=== PATIENT | male | born 1955 | race Asian ===

== ENCOUNTER 2020-08-30 11:43 | Inpatient (IN) | payer OTHER ==
[~2020-08-30] VITALS: Ht 177.8 cm; Wt 77.7 kg
--- NOTE | ~2020-08-30 | EEG ---
[facility] [place] [address] ELECTROENCEPHALOGRAM Name: RAIMUNDO CERVANTES Room #: 201-P [facility] IN M.R.#: [id number] Admission: 08/30/20 Attend Phys: Fani Askew MD Discharge: 08/31/20 Date of : 57 Report #: [id number] THIS REPORT FOR: //name// DOC #: [id number] Ever Garcia MD DATE OF SERVICE: 08/31/2020 This patient is being evaluated for an episode which is TIA versus nonconvulsive seizure. EEG was done by placing the electrode by standard 10-20 system of electrode placement. Both referential and sequential montages were used for recording. Background activity in this patient's EEG is about 9 Hz and 30 microvolts. Large portion of this EEG was obtained when the patient was asleep and associated with bilateral slowing and vertex sharp waves. Photic stimulation is unremarkable. Throughout the record, no active epileptiform activity was noticed. IMPRESSION: Moderately abnormal EEG because it is intermixed with theta range slowing on both sides. That is a nonspecific finding which can occur with encephalopathy, effect of psychotropic medication, dementia, etc. No definite evidence for seizure activity was noticed. Thank you very much for this referral. Ever Garcia MD PK/SMITH By: 1327 1429 Ever Garcia MD /rolf
--- NOTE | ~2020-08-30 | HC ---
[facility] [place] [address] CONSULTATION Name: RAIMUNDO CERVANTES Room #: 201-P DIS IN M.R.#: [id number] Admission: 08/30/20 Attend Phys: Fani Askew MD Discharge: 08/31/20 Date of : 57 Report #: [id number] THIS REPORT FOR: cc: FAM - Family physician unknown FAM - Family physician unknown Ever Garcia MD ~ DOC #: [id number] Ever Garcia MD DATE OF SERVICE: 08/31/2020 HISTORY OF PRESENT ILLNESS: This is a 65-year-old male patient who was evaluated by me for an episode which this patient had, episode is poorly defined. The patient has baseline history that he has a progressive dementia. 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 The patient has disorientation and confusion since and is summarized in H and P and he was repeating the same sentences again and again. He was brought to the emergency room and in the emergency room, the patient had a CT angiogram done, which did not demonstrate any evidence for any hemodynamically significant stenosis. He had an MRI done which was also unremarkable. REVIEW OF SYSTEMS: Positive for progressive dementia and the episode he had, except for that, he apparently does not have any significant medical problems. A 14-point review of system was noncontributory. PAST MEDICAL HISTORY: Positive for progressive dementia, for which he was evaluated in [place] and evaluation was consistent with dementia. FAMILY HISTORY: Appears to be positive for dementia in this patient. SOCIAL HISTORY: He does not smoke or drink any alcohol. PHYSICAL EXAMINATION: The patient's examination indicate he is alert. He can tell me what month it is, but could not tell me the date. He did not know what hospital he is in. He was able to name the president, but could not name the one before, but after several minutes, he did remember. Cranial nerve examination and neuromuscular examinations appear unremarkable. There is no meningeal sign. I could not look at the patient's fundus. He does not appear to have any edema. He is a very well-developed individual who does not have any hearing and vision problems. Cardiac examination appear unremarkable. No respiratory difficulty was noticed. LABORATORY DATA: His vitamin B12 is somewhat on the lower side at 247. TSH is borderline at 4.775. T4 is normal. IMPRESSION AND PLAN: Baseline dementia. I do not know whether the present [facility] [address] [place] [address] CONSULTATION Name: RAIMUNDO CERVANTES Room #: 201-P DIS IN M.R.#: [id number] Admission: 08/30/20 Attend Phys: Fani Askew MD Discharge: 08/31/20 Date of : 57 Report #: [id number] episode was nonconvulsive seizures or transient ischemic attack. Workup so far is unremarkable. I will get an EEG done. EEG is not sensitive enough to brain picker all the seizures. This patient had a full evaluation in [place] including neuropsychological testing and I do not think there is any need to repeat that. This patient needs 24-hour supervision. He should get some vitamin B12 supplement to get his level more than 400. I recommended that he take seizure precautions, but then follow up with [facility] memory clinic because of the complicated history regarding his dementia as described above. I discussed that with the . Until his EEG is abnormal, I will not put him on anticonvulsant, but if he goes to [facility], they can do more testing like prolonged EEG monitoring if the spells continue. If these spells continue, may have to consider a diagnosis of nonconvulsive seizure and treat accordingly. Thank you very much for this referral and if you have any questions, please feel free to contact me. MD TAIWO King/BEN/NOEL By: 0849 01 Ever Garcia MD /nt
--- NOTE | 2020-08-30 11:45 | NUR ---
DR LEES NOTIFIED OF THE ONSET OF PT'S SYMPTOMS, AND DID NOT WANT TO ACTIVATE A STROKE.
[2020-08-30 11:51] VITALS: BP 168/81
[2020-08-30 12:07] LABS: ABSOLUTE NEUTROPHILS 3.4 thou/uL (1.4-8.2); BASOPHILS 0.6 % (0.0-2.0); EOSINOPHILS 1.5 % (0.0-3.0); HEMATOCRIT 52.1 % (42.0-52.0); HEMOGLOBIN 17.4 gm/dL (14.0-18.0); LYMPHOCYTES 28.7 % (24.0-44.0); MCH 32.1 pg (26.0-34.0); MCHC 33.4 g/dL (28.0-37.0); MCV 96.1 fL (80.0-100.0); MONOCYTES 12.4 % (1.0-8.0); PLATELET COUNT 278 thou/uL (150-400); POLYS 56.8 % (36.0-66.0); RBC 5.42 mil/uL (4.50-6.00); RDW 12.4 % (10.5-14.5); WBC 5.9 thou/uL (4.0-11.0)
[2020-08-30 12:16] LABS: ANION GAP 9 mmol/L (7-16); BUN 9 mg/dL (7-18); CALCIUM 8.3 mg/dL (8.5-10.1); CHLORIDE 103 mmol/L (98-107); CO2 29 mmol/L (21-32); CREATININE 1.3 mg/dL (0.7-1.3); GLUCOSE 92 mg/dL (74-106); POTASSIUM 3.7 mmol/L (3.5-5.1); SODIUM 141 mmol/L (136-145)
[2020-08-30 12:21] LABS: BE(vivo) 0.8 mmol/L (-2 to +3); HCO3 27.5 mmol/L (22.0-26.0); PCO2 VENOUS 50.9 mmHg (41.0-51.0); PO2 VENOUS 30.5 mmHg (35.0-45.0)
[2020-08-30 12:26] LABS: ALBUMIN 3.8 g/dL (3.4-5.0); MAGNESIUM 2.4 mg/dL (1.8-2.4); SGOT 22 U/L (15-37); SGPT 31 U/L (30-65); TOTAL BILIRUBIN 0.7 mg/dL (0.2-1.0); TOTAL PROTEIN 7.6 g/dL (6.4-8.2); TROPONIN-I <0.06 ng/mL (<0.06)
[2020-08-30 13:24] LABS: URINE BILIRUBIN NEGATIVE (Negative); URINE BLOOD NEGATIVE (Negative); URINE CLARITY CLEAR; URINE COLOR YELLOW; URINE GLUCOSE-RANDOM* NEGATIVE (Negative); URINE KETONES NEGATIVE (Negative); URINE LEUKOCYTES-REFLEX NEGATIVE (Negative); URINE NITRITE-REFLEX NEGATIVE (Negative); URINE PROTEIN (DIPSTICK) NEGATIVE (Negative); URINE UROBILINOGEN 0.2 E.U./dl (0.2-1.0)
[2020-08-30] MEDS ORDERED: OMEPRAZOLE 20 M20 M1 PO (13:42)
[2020-08-30] MEDS ORDERED: DICYCLOMINE HCL20 MG PO (13:43)
[2020-08-30] MEDS ORDERED: LORAZEPAM 1 MG T1 MG PO (13:44)
[2020-08-30] MEDS ORDERED: DOXEPIN 50MG CA50 M1 PO (13:44)
[2020-08-30] MEDS ORDERED: MEMANTINE HCL10 MG PO (13:45)
[2020-08-30 14:17] VITALS: BP 147/96
[2020-08-30 14:32] VITALS: BP 150/83
--- NOTE | 2020-08-30 14:44 | EKG ---
[address] [address] ELECTROCARDIOGRAM REPORT Name: RAIMUNDO CERVANTES Room #: 201-P ADM IN M.R.#: [id number] Admission: 08/30/20 Attend Phys: Fani Askew MD Discharge: Date of : 57 Report #: [id number] [facility] ED Test Date: 2020-08-30 Test Time: 12:05:46 Pat Name: RAIMUNDO CERVANTES Department: Room: 201 Gender: M Clinical Services Director: ANDREY : 1955 Requested By: Gagan Aguilar Order Number: [id number] : Victoriano Banks Measurements Intervals [place] Rate: 78 P: 45 [place]: 180 QRS: 6 QRSD: 86 T: 26 QT: 363 QTc: 414 Interpretive Statements Sinus rhythm No previous ECG available for comparison Electronically Signed On 08-30-2020 14:43:58 CDT by Victoriano Banks [email or web address] <ELECTRONICALLY SIGNED> By: Victoriano Banks MD, [facility] 08/30/20 1443 1205 1205 Victoriano Banks MD, FACC /EPI
[2020-08-30 14:57] VITALS: BP 158/103
[2020-08-30] MEDS ORDERED: TRAMADOL 50 MG50 MG PO (15:24)
[2020-08-30] MEDS ORDERED: ASA81BEC PO (15:24)
--- NOTE | 2020-08-30 16:30 | NUR ---
PATIENT ADMIT TO CCU AT 1455. AT BEDSIDE. PATIENT HAS INTERMITTENT CONFUSION. STATES HIS NAME AND KNOWS HE IS IN A HOSPITAL, BELIEVES HE IS AT HOSPITAL IN [place]. WILL ANSWER SEVERAL QUESTIONS APPRORIATELY THEN TELL HIS WE ARE TRICKING HIM IN TO STAYING AT THE HOSPITAL. EKG AND CAROTID ULTRASOUND COMPLETED. VERY MINIMAL LEFT SIDE FACIAL DROOP NOTED WHEN PATIENT SMILES. PROVIDER AWARE, THIS WAS PRESENT IN ED. 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
[2020-08-30 18:31] LABS: FOLIC ACID 10.4 ng/mL (8.6-58.9)
[2020-08-30 19:05] VITALS: BP 131/92
[2020-08-31 04:00] VITALS: BP 135/99
--- NOTE | 2020-08-31 06:36 | NUR ---
PATIENTS CARES WERE ASSUMED AT SHIFT CHANGE.PATIENT WAS ASSESSED AND MEDS WERE PASSED. PATIENT DID SLEEP MOST OF THIS SHIFT AFTER SLEEP MEDS WERE GIVEN. ROUNDS WERE MADE. THE BED IS IN A LOW AND LOCKED POSITION. THE BED ALARM IS ON. CONSULTS WERE CALLED
--- NOTE | 2020-08-31 07:46 | EKG ---
[address] [address] ELECTROCARDIOGRAM REPORT Name: RAIMUNDO CERVANTES Room #: 201-P ADM IN M.R.#: [id number] Admission: 08/30/20 Attend Phys: Fani Askew MD Discharge: Date of : 57 Report #: [id number] [facility] Test Date: 2020-08-30 Test Time: 16:12:46 Pat Name: RAIMUNDO CERVANTES Department: Room: 201 P Gender: M Ict Educator: EMORY : 1955 Requested By: Fani Askew Order Number: [id number] MD: Victoriano Banks Measurements Intervals [place] Rate: 77 P: 37 CT: 185 QRS: 8 QRSD: 92 T: 25 QT: 377 QTc: 427 Interpretive Statements Sinus rhythm Compared to ECG 08/30/2020 12:05:46 No significant changes Electronically Signed On 08-31-2020 7:46:06 CDT by Victoriano Banks [email or web address] <ELECTRONICALLY SIGNED> By: Victoriano Banks MD, [facility] 08/31/20 0746 1612 1612 Victoriano Banks MD, FACC /EPI
[2020-08-31 08:40] VITALS: BP 123/80
--- NOTE | 2020-08-31 11:19 | 2DMMODE ---
[facility] [place] [address] 2 D/M-MODE ECHOCARDIOGRAM Name: RAIMUNDO CERVANTES Room #: 201-P ADM IN M.R.#: [id number] Admission: 08/30/20 Attend Phys: Fani Askew MD Discharge: Date of : 57 Report #: [id number] THIS REPORT FOR: cc: FAM - Family physician unknown FAM - Family physician unknown Matthew Sutton MD ~ APPROVED REPORT Study performed: 08/31/2020 09:22:26 EXAM: Comprehensive 2D, Doppler, and color-flow Echocardiogram Patient Location: Bedside Room #: 201 Status: routine BSA: 1.95 HR: 93 bpm BP: 135/99 mmHg Rhythm: NSR Other Information Study Quality: Adequate Indications CVA/TIA Hypertension/HDD Echo Enhancing Agent Indication: Rule out Shunt Agent(s) / Amount(s) Used: Agitated Saline 7 cc Aortic Valve AoV Peak Aristeo.: 0.89 m/s AO Peak Gr.: 3.15 mmHg LVOT Max P.48 mmHg LVOT Max V: 0.93 m/s Left Ventricle The left ventricle is normal size. There is normal LV segmental wall motion. There is normal left ventricular wall thickness. The left ventricular systolic function is normal. The left ventricular ejection fraction is within the normal range. LVEF is 55-60%. This study is not technically sufficient to allow evaluation of the LV diastolic function. Right Ventricle [facility] [address] [place] [address] 2 D/M-MODE ECHOCARDIOGRAM Name: RAIMUNDO CERVANTES Room #: 201-P ADM IN M.R.#: [id number] Admission: 08/30/20 Attend Phys: Fani Askew, Discharge: Date of : 57 Report #: [id number] The right ventricle is normal size. The right ventricular systolic function is normal. Atria The left atrium size is normal. Interatrial septum is intact without evidence of ASD or PFO. The right atrium size is normal. Aortic Valve The aortic valve is normal in structure. The Aortic valve is sclerotic. Mild aortic regurgitation. There is no aortic valvular stenosis. Mitral Valve The mitral valve is normal in structure. There is no mitral valve regurgitation noted. No evidence of mitral valve stenosis. Tricuspid Valve The tricuspid valve is normal in structure. There is no tricuspid valve regurgitation noted. Pulmonic Valve The pulmonary valve is normal in structure. There is no pulmonic valvular regurgitation. Great Vessels The aortic root is normal in size. IVC is normal in size and collapses >50% with inspiration. Pericardium There is no pericardial effusion. <Conclusion> The left ventricle is normal size. There is normal left ventricular wall thickness. LVEF is 55-60%. The aortic valve is normal in structure. The Aortic valve is sclerotic. Mild aortic regurgitation. The mitral valve is normal in structure. The tricuspid valve is normal in structure. The pulmonary valve is normal in structure. The aortic root is normal in size. [facility] [address] [place] [address] 2 D/M-MODE ECHOCARDIOGRAM Name: RAIMUNDO CERVANTES Room #: 201-P ADM IN M.R.#: [id number] Admission: 08/30/20 Attend Phys: Fani Askew, Discharge: Date of : 57 Report #: [id number] There is no pericardial effusion. Interatrial septum is intact without evidence of ASD or PFO. <ELECTRONICALLY SIGNED> By: Matthew Sutton MD 08/31/20 1118 1118 1118 Matthew Sutton MD /INF
--- NOTE | 2020-08-31 11:28 | NUR ---
P.T. ORDERS RECEIVED AND CHART REVIEWED. Pt BACK FROM MRI AND TEST RESULTS RE- VIEWED WITH HIS NURSE, STEVE, WITH NO ACUTE FINDINGS. STEVE STATES THAT Pt SHOULD BE D/C TODAY THEN. SPOKE TO Pt, HIS , AND NURSE, WHO ALL STATE THAT Pt IS GETTING AROUND WELL AND SAFETY AND NO NEED FOR SKILLED P.T. AT THIS TIME. Pt (AND HIS ) THUS REFUSING P.T.. O.T. DID EVAL Pt PRIOR TO THIS AND PER O.T. DOCUMENTATION AND Pt (AND HIS ), Pt IS SAFE WITH HIS MOBILITY.
[2020-08-31] MEDS ORDERED: PLAVIX 75 MG TA75 MG PO (12:32)
[2020-08-31] MEDS ORDERED: LIPITOR10 MG PO (12:32)
[2020-08-31 12:41] VITALS: BP 123/80
[2020-08-31 13:03] VITALS: BP 123/80
--- NOTE | 2020-08-31 13:04 | NUR ---
PT DC TODAY AT 1300 WITH . ECHO AND EEG DONE AT BEDSIDE. MRI OF HEAD COMPLETED. PT AFEBRILE, ADEQUATE UOP, NO BM, APPROPRIATE APPETITE. PT AND HAVE BEEN UPDATED AND EDUCATED ON PT CONDITION AND POC. PT PROGRESSING TOWARDS POC.
== END 2020-08-31 13:00 | disposition home or self-care (01) | DRG 69 ==
LOC: ER 11:43 → EROBS 14:34 → 2N 14:34
PROVIDERS: Emergency Medicine; ADMIT Internal Medicine; ATTEND Internal Medicine
DX: G45.9 Transient cerebral ischemic attack, unspecified (principal); G93.41 Metabolic encephalopathy; R29.810 Facial weakness; F03.90 Unspecified dementia, unspecified severity, without behavioral disturbance, psychotic disturbance, mood disturbance, and anxiety; F41.9 Anxiety disorder, unspecified; Z20.822 Contact with and (suspected) exposure to COVID-19; Z79.899 Other long term (current) drug therapy; Z87.820 Personal history of traumatic brain injury
CPT/HCPCS: 10081

== ENCOUNTER 2020-12-28 20:20 | Emergency (ER) | payer OTHER ==
[~2020-12-28] VITALS: Ht 177.8 cm; Wt 79.4 kg
[~2020-12-28 20:20] MED LIST: ASA81BEC PO; DICYCLOMINE HCL20 MG PO; DOXEPIN 50MG CA50 M1 PO; LIPITOR10 MG PO; LORAZEPAM 1 MG T1 MG PO; MEMANTINE HCL10 MG PO; OMEPRAZOLE 20 M20 M1 PO; PLAVIX 75 MG TA75 MG PO; TRAMADOL 50 MG50 MG PO
[2020-12-28] MEDS ORDERED: [UNRECOGNIZED DRUG - OTHER] PO (20:36)
[2020-12-28 21:10] LABS: ABSOLUTE NEUTROPHILS 2.5 thou/uL (1.4-8.2); BASOPHILS 0.6 % (0.0-2.0); EOSINOPHILS 0.1 % (0.0-3.0); HEMATOCRIT 45.6 % (42.0-52.0); HEMOGLOBIN 15.9 gm/dL (14.0-18.0); LYMPHOCYTES 18.7 % (24.0-44.0); MCH 32.1 pg (26.0-34.0); MCHC 34.9 g/dL (28.0-37.0); MCV 91.9 fL (80.0-100.0); MONOCYTES 16.6 % (1.0-8.0); PLATELET COUNT 163 thou/uL (150-400); RBC 4.96 mil/uL (4.50-6.00); RDW 12.4 % (10.5-14.5)
[2020-12-28 21:19] LABS: CALCIUM 7.9 mg/dL (8.5-10.1); CREATININE 1.3 mg/dL (0.7-1.3); POTASSIUM 3.4 mmol/L (3.5-5.1)
[2020-12-28 21:25] LABS: ALBUMIN 3.2 g/dL (3.4-5.0); DIRECT BILIRUBIN 0.2 mg/dL (<0.1-0.2); TOTAL BILIRUBIN 0.6 mg/dL (0.2-1.0); TOTAL PROTEIN 7.1 g/dL (6.4-8.2)
[2020-12-29 08:34] LABS: URINE BILIRUBIN NEGATIVE (Negative); URINE BLOOD NEGATIVE (Negative); URINE CLARITY CLEAR; URINE COLOR YELLOW; URINE GLUCOSE-RANDOM* NEGATIVE (Negative); URINE KETONES TRACE (Negative); URINE LEUKOCYTES-REFLEX NEGATIVE (Negative); URINE NITRITE-REFLEX NEGATIVE (Negative); URINE PROTEIN (DIPSTICK) NEGATIVE (Negative); URINE UROBILINOGEN 0.2 E.U./dl (0.2-1.0)
[2020-12-29 08:43] LABS: AMP/METHAMP Negative (Negative); BARBITURATES Negative (Negative); BENZODIAZEPINES Negative (Negative); COCAINE Negative (Negative); METHADONE Negative (Negative); OPIATES Negative (Negative); PCP Negative (Negative)
[2020-12-29 09:33] VITALS: BP 142/84
--- NOTE | 2020-12-30 08:18 | EKG ---
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
--- NOTE | 2020-12-30 08:21 | EKG ---
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
== END 2020-12-29 09:34 | disposition still patient (30) ==
LOC: ER 20:20
PROVIDERS: Student in an Organized Health Care Education/Training Program
DX: U07.1 COVID-19 (principal); F03.90 Unspecified dementia, unspecified severity, without behavioral disturbance, psychotic disturbance, mood disturbance, and anxiety; Z79.82 Long term (current) use of aspirin; Z79.1 Long term (current) use of non-steroidal anti-inflammatories (NSAID); Z79.899 Other long term (current) drug therapy

== ENCOUNTER 2020-12-29 11:16 | Inpatient (IN) | payer OTHER ==
[~2020-12-29] VITALS: Ht 175.3 cm; Wt 74.4 kg
--- NOTE | ~2020-12-29 | EMS ---
[facility] [address] [place] [address] EMS Patient Care Report Name: RAIMUNDO CERVANTES Room #: 351-P ADM IN M.R.#: [id number] Admission: 12/29/20 Attend Phys: Kirti Gomez MD Discharge: Date of : 57 Report #: [id number] THIS REPORT FOR: //name// Report Transmitted: 12/30/2020 12:27 EMS Care Summary [facility] Incident [id number] @ 12/29/2020 10:23 Incident Location [address] [place] [id number] Patient RAIMUNDO CERVANTES Male, 65 Years 1955 Patient Address [address] [place] [phone] Patient History Other, Patient Allergies No known allergies, Patient Medications Lorazepam, Doxepin, Omeprazole, Tramadol, Chief Complaint GENERAL SICKNESS/COVID-19 POSITIVE Disposition Transported No Lights/[place] Dispatch Reason Sick Person Transported To [facility] Narrative MEDIC 43 DISPATCHED TO A 65 YO MALE WITH FATIGUE/NOT FEELING WELL. ON SCENE CAPTAIN REPORTED PT IS COVID-19 POSITIVE ALONG WITH EVERY OTHER MEMBER IN HOUSEHOLD. IT WAS REPORTED CALLED 911 DUE TO HUSBANDS INTERMITTENT CONFUSION ALONG WITH HIS FATIGUE. ON SCENE CAPTAIN REPORTED THAT PT ALSO HAS A [facility] [address] [place] [address] EMS Patient Care Report Name: RAIMUNDO CERVANTES Room #: 351-P ADM IN .R.#: [id number] Admission: 12/29/20 Attend Phys: Kirti Gomez MD Discharge: Date of : 57 Report #: [id number] MEDICAL HX OF TBI DUE TO PLAYING FOOTBALL YEARS PRIOR. PT HAD REPORTEDLY BEEN TO [facility] THE NIGHT PRIOR FOR A FECAL IMPACTION. [facility] CREW ASSISTED PT TO COT AND LOADED PT INTO AMBULANCE. MY INITIAL ASSESSMENT FOUND PT AOX4, WITH GCS OF 15. PT WOULD RAMBLE SOME SMALL CONFUSING STATEMENTS ON HIS OWN, BUT WHEN ASKED IF IT IS DAYTIME OR NIGHT TIME/HOW MANY QUARTERS ARE IN A $1.50; PT COULD ANSWER CORRECTLY. VS WNL. AIRWAY INTACT WITH CEBLS. AXILLARY TEMP 99.7. CSS NEGATIVE. PT HAD NO IMMEDIATE CHIEF COMPLAINT, PT STATED HE JUST DIDN'T FEEL WELL. PT ANSWERED HE WAS COVID POSITIVE, AND HAD BEEN ILL FOR ABOUT SIX DAYS. SECONDARY ASSESSMENT FOUND PT AOX4, GCS 15, VS WNL, AIRWAY INTACT WITH CEBLS. CSS NEGATIVE. PT HAD NO NEW C/C OR CHANGES IN CONDITION. [facility] WAS GIVEN RADIO REPORT. UPON ARRIVAL PT WAS TAKEN TO ER ROOM 3, BEDSIDE REPORT GIVEN TO RN. PT FULL LIFT TO BED. MEDIC 43 CLEAR AND RETURNING. Initial Vitals @11:05P: 93,R: 26,BP: 113/76,Pain: 0/10,GCS: 15,CO: 0,SpO2: 96,Revised Trauma: 12, @10:52P: 96,R: 21,BP: 105/61,Pain: 0/10,GCS: 15,SpO2: 98,Revised Trauma: 12, @10:37P: 105,R: 15,BP: 114/81,Pain: 0/10,GCS: 15,Glucose: 93,SpO2: 98,Revised Trauma: 12, @11:08P: 94,R: 23,BP: 132/88,Pain: 0/10,GCS: 15,CO: 0,SpO2: 95,Revised Trauma: 12, Assessments @10:38MENTAL:No Abnormalities,SKIN:No Abnormalities,HEENT:Eyes: Right Pupil: 3-mm,Eyes: Left Pupil: 3-mm,Head/Face: No Abnormalities,LUNG SOUNDS:General: No Abnormalities,ABDOMEN:General: No Abnormalities,PELVIS//GI:EXTREMITIES:Capillary Refill: Left Upper: 3 Sec,Left Arm: No Abnormalities,Right Arm: No Abnormalities,Left Leg: No Abnormalities,Right Leg: No Abnormalities,PULSE:Radial: 2+ Normal,NEURO:No Abnormalities,@10:48MENTAL:No Abnormalities,SKIN:No Abnormalities,HEENT:Eyes: Right Pupil: 3-mm,Eyes: Left Pupil: 3-mm,Head/Face: No Abnormalities,Neck/Airway: No Abnormalities,LUNG SOUNDS:General: No Abnormalities,ABDOMEN:General: No Abnormalities,PELVIS//GI:EXTREMITIES:Capillary Refill: Left Upper: 3 Sec,Left Arm: No Abnormalities,Right Arm: No Abnormalities,Left Leg: No Abnormalities,Right Leg: No Abnormalities,PULSE:Radial: 2+ Normal,NEURO:No Abnormalities, Impression Fatigue Procedures @10:38ALS AssessmentResponse: UnchangedSucceeded@10:41Normal Saline (.9% NaCl) 510cc (18 ga) Site: Antecubital-LeftResponse: UnchangedSucceeded@10:48ALS [facility] [address] [place] [address] EMS Patient Care Report Name: RAIMUNDO CERVANTES Room #: 351-P ADM IN M.R.#: [id number] Admission: 12/29/20 Attend Phys: Kirti Gomez MD Discharge: Date of : 57 Report #: [id number] AssessmentResponse: UnchangedSucceeded@10:42 cc (18 ga) Site: Antecubital-LeftResponse: UnchangedSucceeded Timeline 10:22,Call Received 10:22,Psap Call 10:23,Dispatched 10:24,En Route 10:31,On Scene 10:37,At Patient 10:37,BP: 114/81 M,PULSE: 105,RR: 15 R,SPO2: 98 Ox,ETCO2: ,B,PAIN: 0,GCS: 15, 10:38,ALS Assessment,Response: UnchangedSucceeded, 10:41,Normal Saline (.9% NaCl) 510cc 18 ga Site: Antecubital-Left,Response: UnchangedSucceeded, 10:42, cc 18 ga Site: Antecubital-Left,Response: UnchangedSucceeded, 10:43,Depart Scene 10:48,ALS Assessment,Response: UnchangedSucceeded, 10:52,BP: 105/61 M,PULSE: 96,RR: 21 R,SPO2: 98 Ox,ETCO2: ,BG: ,PAIN: 0,GCS: 15, 11:05,BP: 113/76 M,PULSE: 93,RR: 26 R,SPO2: 96 Ox,ETCO2: ,BG: ,PAIN: 0,GCS: 15, 11:08,BP: 132/88 M,PULSE: 94,RR: 23 R,SPO2: 95 Ox,ETCO2: ,BG: ,PAIN: 0,GCS: 15, 11:09,At Destination 11:34,Call Closed Disclaimer v1.1 Copyright 2020 [employer] This EMS Care Summary contains data elements from the applicable legal record (which may be displayed differently). It is designed to provide pertinent information for the following purposes: continuity of care, clinical quality, and state data reporting. The complete legal record is available to ED staff and administrators of the receiving hospital in ES's Patient Tracker. All data is provided "as is."
[~2020-12-29 11:16] MED LIST changes: +[UNRECOGNIZED DRUG - OTHER] PO
[2020-12-29 11:17] VITALS: BP 152/88
[2020-12-29 12:23] VITALS: BP 152/88
[2020-12-29 12:30] VITALS: BP 158/80
[2020-12-29 14:40] VITALS: BP 146/74
[2020-12-29 18:12] LABS: HEMATOCRIT 48.7 % (42.0-52.0); HEMOGLOBIN 16.7 gm/dL (14.0-18.0); MCH 31.9 pg (26.0-34.0); MCHC 34.2 g/dL (28.0-37.0); MCV 93.2 fL (80.0-100.0); PLATELET COUNT 191 thou/uL (150-400); RBC 5.22 mil/uL (4.50-6.00); RDW 12.4 % (10.5-14.5); WBC 4.8 thou/uL (4.0-11.0)
[2020-12-29 18:44] LABS: ABSOLUTE NEUTROPHILS 3.6 thou/uL (1.4-8.2)
[2020-12-29 19:26] VITALS: BP 148/96
--- NOTE | 2020-12-29 19:46 | NUR ---
PATIENT ADMIT TO UNIT FROM ER AT 1230. A/O X3. CONFUSED AND IMPULSIVE FREQUENTLY GOT UP WANT DO SOMETHING. PATIENT ABLE TO TURN BED ALARM OFF THEN WENT TO SHOWER ROOM TURN HPT WATER ON. CHULA RESTRAIT PLACED AT 1635. NOTIFIED PATIENT . VSS. TOLERATED ON RA. WILL KEEP MONITOR.
[2020-12-30 03:23] LABS: ABSOLUTE NEUTROPHILS 3.6 thou/uL (1.4-8.2); BASOPHILS 0.2 % (0.0-2.0); HEMATOCRIT 46.5 % (42.0-52.0); LYMPHOCYTES 17.3 % (24.0-44.0); MCHC 34.5 g/dL (28.0-37.0); MCV 92.8 fL (80.0-100.0); MONOCYTES 15.9 % (1.0-8.0); PLATELET COUNT 186 thou/uL (150-400); POLYS 66.6 % (36.0-66.0); RBC 5.01 mil/uL (4.50-6.00); RDW 12.3 % (10.5-14.5); WBC 5.3 thou/uL (4.0-11.0)
[2020-12-30 03:41] LABS: CHOLESTEROL 115 mg/dL (<200); HDL CHOLESTEROL 32 mg/dL (>40); LDL CHOLESTEROL 70 mg/dL (<100); TC:HDL 3.6 Ratio (Not establshd); TRIGLYCERIDE 67 mg/dL (<150); VLDL 13 mg/dL (<40)
[2020-12-30 03:42] VITALS: BP 141/71
[2020-12-30 03:43] LABS: CALCIUM 7.3 mg/dL (8.5-10.1); CREATININE 1.3 mg/dL (0.7-1.3); MAGNESIUM 1.8 mg/dL (1.8-2.4); POTASSIUM 3.8 mmol/L (3.5-5.1)
--- NOTE | 2020-12-30 04:47 | NUR ---
PT MAKING PROGRESS TOWARDS GOALS. ON ROOM AIR THROUGHOUT THE NIGHT. CONTINUOS PULSE OXIMETER PLACED OVERNIGHT. O2 SAT 94-96% UPON SPOT CHECKS.
[2020-12-30 04:49] LABS: SERUM ASSESSMENT Clear
[2020-12-30 07:27] VITALS: BP 111/77
[2020-12-30 15:56] VITALS: BP 141/88
[2020-12-30 19:28] VITALS: BP 159/97
--- NOTE | 2020-12-30 19:58 | NUR ---
RESTRAINTS REMOVED AT 1200. PT REDIRECTED X2. BED ALARM IS A MUST. POC FOR COVID BEING FOLLOWED WITH REMDESIVIR AND IVPB. SPOKE TO PT X2. DR ROPER CALLED PT AND DISCCUSSED OPTIONS FOR DC. HENRI IN TO DD. NO OTHER ISSUES.
[2020-12-31 01:06] LABS: GLYCOHEMOGLOBIN (HGB A1C) 5.6 % (4.8-5.6)
[2020-12-31 04:18] VITALS: BP 110/92
[2020-12-31 04:45] LABS: INR 1.04; PROTIME 11.3 Seconds (10.5-12.1)
[2020-12-31 05:13] LABS: ABSOLUTE NEUTROPHILS 2.8 thou/uL (1.4-8.2); BASOPHILS 0.5 % (0.0-2.0); EOSINOPHILS 0.1 % (0.0-3.0); HEMATOCRIT 43.4 % (42.0-52.0); HEMOGLOBIN 14.9 gm/dL (14.0-18.0); LYMPHOCYTES 20.9 % (24.0-44.0); MCHC 34.2 g/dL (28.0-37.0); MCV 93.4 fL (80.0-100.0); MONOCYTES 18.9 % (1.0-8.0); PLATELET COUNT 193 thou/uL (150-400); POLYS 59.6 % (36.0-66.0); RBC 4.65 mil/uL (4.50-6.00); RDW 12.8 % (10.5-14.5); WBC 4.7 thou/uL (4.0-11.0)
[2020-12-31 05:44] LABS: ALBUMIN 2.5 g/dL (3.4-5.0); CALCIUM 7.2 mg/dL (8.5-10.1); CREATININE 1.2 mg/dL (0.7-1.3); DIRECT BILIRUBIN 0.1 mg/dL (<0.1-0.2); PHOSPHORUS 2.6 mg/dL (2.5-4.9); POTASSIUM 3.7 mmol/L (3.5-5.1); TOTAL BILIRUBIN 0.4 mg/dL (0.2-1.0); TOTAL PROTEIN 6.1 g/dL (6.4-8.2)
--- NOTE | 2020-12-31 05:49 | NUR ---
PT MAKING PROGRESS TOWARDS GOALS. ON ROOM AIR THROUGHOUT THE NIGHT. ONLY C/O WAS OCCASIONAL COUGHING. LUNGS CTA.
[2020-12-31 07:44] VITALS: BP 140/84
[2020-12-31 09:08] LABS: HIV ANTIBODY Non Reactive (Non Reactive)
--- NOTE | 2020-12-31 14:59 | NUR ---
INITIAL ASSESSMENT: Received consult. JONY reviewed chart and spoke with nursing and attending physician. Pt was admitted from home due to AMS. Neuro and psych consulted. Pt placed in Enhanced Isolation due to COVID. Pt has received the [employer] COVID vaccine. Pt is afebrile and not requiring O2. Pt is is on IV abx, IV steroids and Remdesivir. Pt with hx of dementia. PT/OT evaluated pt today and states pt is safe to discharge back home. JONY spoke with pt's , Graciela, via phone. Introduced role of SW. Prior to admission, pt needing some assistance with ADLs due to dementia. Pt does not use any DME. There are 2 steps to enter and about 10-12 steps inside. Pt's PCP is Dr. Roly Bains at [facility]. Pt's states that she is wanting to bring pt home when he is discharged. She does not want him to go to another facility. Pt's also has COVID and is recovering at home. JONY discussed HH services. Pt's is agreeable with HH referral. JONY confirmed pt's home address. Options discussed for HH providers. No preference voiced. JONY notified [facility] liaison with new referral to check pt's insurance. JONY updated attending physician. Plan is for pt to discharge home when medically stable. JONY is following to assist as needed with discharge planning.
[2020-12-31 15:10] VITALS: BP 110/67
--- NOTE | 2020-12-31 19:11 | NUR ---
ASSUMED PATIENT CARE AT 0700. A/O X3. GETTING BETTER IN THE MORNING. CONFUSED WALK IN THE ROOM. GAIT STEADY. PROGRESSING TOWARDS POC GOALS.
[2020-12-31 19:25] VITALS: BP 138/86
[2021-01-01 04:30] VITALS: BP 141/88
[2021-01-01 05:09] LABS: ABSOLUTE NEUTROPHILS 2.1 thou/uL (1.4-8.2); BASOPHILS 0.3 % (0.0-2.0); HEMATOCRIT 47.7 % (42.0-52.0); HEMOGLOBIN 16.5 gm/dL (14.0-18.0); LYMPHOCYTES 11.4 % (24.0-44.0); MCH 32.3 pg (26.0-34.0); MCHC 34.6 g/dL (28.0-37.0); MCV 93.3 fL (80.0-100.0); MONOCYTES 19.6 % (1.0-8.0); PLATELET COUNT 230 thou/uL (150-400); POLYS 68.7 % (36.0-66.0); RBC 5.11 mil/uL (4.50-6.00); RDW 12.6 % (10.5-14.5)
[2021-01-01 05:27] LABS: ALBUMIN 2.9 g/dL (3.4-5.0); CALCIUM 8.2 mg/dL (8.5-10.1); CREATININE 0.9 mg/dL (0.7-1.3); DIRECT BILIRUBIN 0.1 mg/dL (<0.1-0.2); PHOSPHORUS 3.1 mg/dL (2.5-4.9); TOTAL BILIRUBIN 0.5 mg/dL (0.2-1.0)
--- NOTE | 2021-01-01 05:53 | NUR ---
PT VERY IMPULSIVE. REDIRECTED MULTIPLE TIMES, PT TRYING TO GET OUT AND WALK HALLS. MULTIPLE MEDS GIVEN WITHOUT SUCCESS. PT HAS NOW FIGURED OUT HOW TO DISABLE BED ALARM. PT SHOULD DC TODAY HOME.
[2021-01-01 07:48] VITALS: BP 143/86
--- NOTE | 2021-01-01 14:57 | NUR ---
JONY reviewed chart and spoke with nursing and attending physician. Pt remains in Enhanced Isolation due to COVID. Pt is afebrile and not requiring O2. Pt is on IV abx, IV steorids and Remdesivir. No weekend discharge planned. Home with HH is anticipated for Monday. JONY spoke with pt's via phone at length to discuss discharge plan. Pt's requests to speak with neuro and ID today to provide info to the physicians and to obtain info regarding her 's plan of care. JONY discussed home with HH. Pt's requests to have a SNF arranged or in place if needed after pt discharges home. JONY explained that SNF options are limited to pt's insurance and due to COVID. Pt's verbalized understanding. SW provided options of SNFs who are accepting COVID positive pts. SW to find out which SNFs accept pt's insurance. SW contacted ID to call pt's for an updated. JONY requested nursing page neuro to request follow up. Psych to evaluate pt today. JONY is following to assist as needed with discharge planning.
[2021-01-01 16:26] VITALS: BP 128/89
--- NOTE | 2021-01-01 18:16 | NUR ---
ASSUMED PATIENT CARE AT 0700. A/O X4. AMBULATED IN ROOM AND COMES OUT IF HIS ROOM FREQUENTLY. PATIENT DISCONNECTED ROOM POWER CORD, CLEAN ROOM FLOOR. CLEAN BATHROOM.... WILL KEEP MONITOR
[2021-01-01 19:56] VITALS: BP 137/80
[2021-01-02 03:58] VITALS: BP 149/99
--- NOTE | 2021-01-02 05:29 | NUR ---
PT REQUIRED 1:1 TONIGHT. WITHOUT SUPERVISION PT IS ELOPEMENT RISK. ATTEMPTED TO DECREASE ANXIETY AND LET PT REST WITH MULTIPLE MEDICATION INTERVENTIONS, WITH ZERO SUCCESS. PT IS LIKE A YOUNG CHILD WHO WILL NOT SET STILL. SPOKE TO JEWEL GAUGER ABOUT MOVING PT TO [facility] IN THE SICU. PT IS NOT ON OR , AND THAT DETERMINATION CAN BE MADE BY HOSPITALIST TODAY. PT WILL NOT DC UNTIL EARLIEST MONDAY NOW. PT REMOVED IV ACCESS.
[2021-01-02 06:48] LABS: ALBUMIN 3.2 g/dL (3.4-5.0); CALCIUM 8.5 mg/dL (8.5-10.1); CREATININE 0.9 mg/dL (0.7-1.3); DIRECT BILIRUBIN 0.2 mg/dL (<0.1-0.2); PHOSPHORUS 3.4 mg/dL (2.5-4.9); POTASSIUM 3.8 mmol/L (3.5-5.1); TOTAL BILIRUBIN 0.6 mg/dL (0.2-1.0)
[2021-01-02 07:56] VITALS: BP 151/93
--- NOTE | 2021-01-02 10:45 | NUR ---
REPORT GIVEN TO RAOUL IN SICU, CALLED PT AND UPDATED ABOUT PT TRANSFER. WANTED TO TALK TO DR. ROPER WHENSHE CAN. DR. ROPER MADE AWARE. ALL BELONGING PACXKED AND SENT DOWN WITH PT. NO IV ASSESS
--- NOTE | 2021-01-02 13:39 | NUR ---
1330 RESUMMED CARE FROM [facility] DUE TO CONFUSION AND DESTROYING A COMPUTER. UPON ARRIVING ON THE UNIT PATIENT WAS CONSTANTLY COMING OUT OF HIS OM NOT BEING REDIRECTABLE. PATIENT WAS COMBATIVE AND DR ROPER ORERED HALDOL 5 MG IM. PATIENTS CALLED VERY UPSET ABOUT HIM BEING TRANSFERED TO SICU; SHE STATES DR WILHELM POMISED HER SHE WOULD NOT SEND HIM O [facility]. PATIENT WOULD LIKE TO COME ON MONDAY TO DISCHARGE PATIENT. SHE WOULD LIKE THE [facility] MECHANIC MARINE ENGINE TO HELP COORDINATE HOME HEALTH OR HIM. DR ROPER TALKD WITH THE WHIT AND TOLD PAIENT SHE IS WELCOME TO COME GET HIM ON MONDAY. WILL CONINUT TO MONITOR PATIENT FOR SAFETY AND BEHAVIORS.
[2021-01-02 19:54] VITALS: BP 149/93
--- NOTE | 2021-01-02 20:23 | NUR ---
RESUMED CARE OF PATIENT AT 1915. DAY NURSE STATES THAT PATIENT PULLED OUT HIS IV EARLIER AND DR ROPER WAS ALERTED SHE WAS ON PATIENT FLOOR WHEN HAPPENED. DAY NURSE STATES THAT SHE LET MADE DR ROPER AWARE OF THIS AND NO NEW ORDERS GIVEN TO REINSERT. PATIENT CONTINUES TO WANDER AROUND IN ROOM. HE ATTEMPTS TO COME OUT OF ROOM AT TIMES AND IS REDIRECTED BACK INTO ROOM. HE IS A/[address] WILHELM NOTIFIED OF PATIENT BEING HERE AND CLARIFIED THAT PATIENT HAS NOT BEEN ACCEPTED AN [facility] PATIENT AND TO ALLOW PATIENT TO USE HIS CELL PHONE AND HAVE HIS BELONGINGS IF HE LIKES AND TO CALL MEDICAL COMPANY LABORER FOR ORDERS. HE IS TO BE TREATED A REGULAR PATIENT THAT IS NOT ON [facility] UNIT. PATIENT IS IN ISOLATION FOR COVID. HIS LUNGS ARE CLEAR BILATERALLY AND 02SAT IS 100 %. HE HAS BEEN OFFERED SNACKS AND DRINKS WHICH HE HAS DECLINED. HE DID RECEIVE SCHEDULED RESPIRTATORY TREATMENT. REMSIVIR NOT GIVEN D/T NO IV ACCESS HOW IT WAS ORDERED. PATIENT WITHOUT SOA. NO COUGH NOTED. POSITIVE BOWEL SOUNDS X 4. WILL CONINUE TO MONITOR.
--- NOTE | 2021-01-02 21:16 | NUR ---
NOTIFIED HOSPITALIST Altaf ARREAGA LAG SCREWER ASKING IF REDIVSIMER COULD BE GIVEN PO SINCE PATIENT PULLED OUT IV TODAY AND DR ROPER DID NOT GIVE ORDER TO RESTART. SHE STATES THAT IV IS ALL WE HAVE BEEN DOING AND ORDERED FOR IV PLACEMENT. THIS NURSE ATTEMPTED IV INSERT X3 AND VEIN KEPT ROLLING. CALL PLACED TO REPORTING MANAGER FOR HELP IN IV START. DELORES, CATERING TRUCK DRIVER STATES SHE WILL COME HELP. NOTIFIED PHARMACIST THAT NEED IV REDIVSIMER AND HE STATES HE WILL HAVE TECH CHECK FRIDGE ON 3W AND BRING IT DOWN WITH OTHER HS MEDS. AWAITING MEDS. DR WILHELM PLACED NEW MED ORDER TO INCREASE DEPAKOTE TO 500MG.
--- NOTE | 2021-01-03 00:29 | NUR ---
PATIENT GIVEN OLANZAPINE 5MG IM LEFT DELTOID AT 2225. IV RESTARTED IN RIGHT FOREARM AFTER SUCCESSFUL INSERTION WITH 22G IV BY CRANKSHAFT GRINDER, DELORES. PATIENT TOLERATED WELL. PATIENT 1800 01/02/21 DOSE OF REMSDIVER WAS STARTED IV AT 0020 WITH COMMUNITY RELATIONS DIRECTOR SITTING WITH PATIENT. PATIENT HAS BEEN BECOMING MORE AGRESSIVE THRU THE NIGHT HENCE THE REASON FOR OLANZAPINE 5MG IM. DR WILHELM WAS NOTIFIED OF BEHAVIORS AND SAID IF OLANZAPINE DOESN'T WORK TO GET 1:1. CRANKSHAFT GRINDER SAYS SHE HAS NO ONE TO FULFILL THAT ORDER. COMMUNITY RELATIONS DIRECTOR, YFN SITTING WITH PATIENT AT THIS TIME. I SHOWERED THE PATIENT AROUND 2100 WHEN HE REQUESTED HOT SHOWER AND HELPED HIM GET DRESSED AND INTO BED. PATIENT UNSTABLE ON HIS FEET D/T DOSES OF TRAMADOL, OLANZAPINE, ATIVAN AND MELATONIN. PATIENT STILL INSISTS ON GETTING UP AND TRYING TO WALK. BECOMING MORE DIFFICULT TO REDIRECT. BED IN LOW POSITION AND BED ALARM IS ON. THIS NURSE SWITCHING BACK AND FORTH SITTING WITH PATIENT 1:1 UNTIL HE FALLS ASLEEP. CONTINUING TO MONITOR. NO SIGNS OF SI/HI/AVH. C/O KNEES HURTING. TRAMADOL GIVEN LATE D/T UNABLE TO GET FROM PHARMACY UNTIL IT WAS AVAILABLE.
[2021-01-03 06:31] LABS: CALCIUM 8.3 mg/dL (8.5-10.1); CREATININE 1.1 mg/dL (0.7-1.3); DIRECT BILIRUBIN 0.2 mg/dL (<0.1-0.2); PHOSPHORUS 3.3 mg/dL (2.6-4.7); POTASSIUM 3.7 mmol/L (3.5-5.1); TOTAL BILIRUBIN 0.6 mg/dL (0.2-1.0); TOTAL PROTEIN 6.7 g/dL (6.4-8.2)
--- NOTE | 2021-01-03 06:35 | NUR ---
PATIENT REMAINED RESTLESS FOR MOST OF THE NIGHT. HE FINALLY FELL OFF TO SLEEP AROUND 0330. PATIENT STILL TOSSES AND TURNS ALOT IN BED. HE DID AWAKE ENOUGH TO HAVE LAB DRAWN AND TO TAKE MEDS AND THEN BACK TO SLEEP. BED IN LOW POSITION AND BED ALARM IS ON.
--- NOTE | 2021-01-03 06:49 | NUR ---
PT SLEPT 2.2 HOURS LAST NIGHT.
[2021-01-03 10:00] VITALS: BP 159/81
--- NOTE | 2021-01-03 14:06 | NUR ---
Alert and orientated to name only. Slept until 10 am. Took meds whole with H2O without difficulty. Denies SI/HI. Ambulating in room with slightly unsteady gait. Breath sounds clear and slightly diminished. O2 sats 100% on RA. Reg HR auscultated. Color pink with brisk capillary refill and palpable peripheral pulses. Independent with voiding. Hypoactive bowel sounds over soft, rounded abdomen. called 3 times prior to 9 am stating that she had not spoken to anyone in 3 days. I called around 1030 and she stated that she was not his DPOA and that she needed letter urgently to get him placed. Stated she also needed to speak with Dr. Jeremi GOFF who is also the physician who was writing the letter. Stated that she was going to take him home on Monday AM.
[2021-01-03 20:56] VITALS: BP 127/70
--- NOTE | 2021-01-04 03:12 | NUR ---
ASSUMED CARE OF PATIENT AT 1900. PATIENT WAS JUST FINISHING HIS IV MED REMSDEVIR. PATIENT WAS RESTLESS AND KEPT WANTING TO GET UP AND WALK BUT WAS UNSTEADY IN GAIT. HE HAD BEEN GIVEN ATIVAN 1MG A COUPLE HOURS EARLIER PER DAY NURSE. PATIENT A/0X1. PATIENT LIKES TO KEEP BUSY AND HAD TO BE REDIRECTED SEVERAL TIMES WHEN PLAYING WITH THINGS AROUND THE ROOM. HE WAS TRYING TO PEEL BACK THE WALL WHERE SOME PANELING WAS BECAUSE HE THOUGHT IT WAS A DOOR. HE TOOK THE CRUCIFIX OF LACEY OFF THE WALL AND THIS NURSE REMOVED IT FROM THE ROOM. HE ATTEMPTED TO MESS WITH THE COMPUTER IN THE ROOM AND WAS REDIRECTED. PATIENT TOOK HIS HS MEDS WHOLE WITH WATER. HE LAID DOWN IN BED AROUND 2100 AND HAS BEEN TOSSING AND TURNING BUT APPEARS TO SLEEP DURING THIS. HE AWOKE 3 TIMES TO USE THE BATHROOM AND WAS AN ASSIST X 2 D/T HE WAS SO UNSTEADY ON HIS FEET AND DROWSY. HE NEEDS SIMPLE DIRECTIONS GIVEN TO HIM AND STEP BY STEP INSTRUCTIONS. HAVE BEEN HYDRATING PATIENT WITH WATER WHEN HE IS UP. PATIENT IS CONFUSED AND EARLIER IN THE EVENING HE USED THE TRASH CAN A TOILET. I WAS UNABLE TO CONVINCE HIM THAT THAT WAS NOT THE BATHROOM. PATIENT HAS HAD HICCUPS CONTINUALLY FOR HOURS AT A TIME. CALLED AND RECEIVED ONE TIME ORDER FOR THORAZINE TAB FROM [facility]. HICCUPS STOPPED AND PATIENT DID NOT WANT TO WAKE UP FOR THE MED SO NOT GIVEN AT THIS TIME. PATIENT IS LAYING IN HIS BED AWAKE AT THIS TIME AND DOZES OFF FOR A FEW MINUTES AT A TIME. BED IS IN LOW POSITION AND BED ALARM IS ON. THIS NURSE SITTING OUTSIDE PT DOOR TO KEEP HIM IN VIEW FOR SAFETY AND FALL REASONS. CONTINUING TO MONITOR.
--- NOTE | 2021-01-04 04:48 | NUR ---
PATIENT BEGAN WITH HIC UPS AGAIN. THORAZINE 25MG PO ONETIME GIVEN. PATIENT'S HICCUPS STOPPED ABOUT 20 MINUTES LATER AND PATIENT SLEPT FOR 45 MINUTES BEFORE HICCUPS RETURNED. PATIENT LAYING IN BED WITH EYES CLOSED AND WITH HICCUPS. HOB ELEVATED SLIGHTLY. PATIENT LAYING ON HIS LEFT SIDE. CONTINUING TO MONITOR.
[2021-01-04 06:01] LABS: CALCIUM 8.3 mg/dL (8.5-10.1); CREATININE 0.9 mg/dL (0.7-1.3); DIRECT BILIRUBIN 0.2 mg/dL (<0.1-0.2); PHOSPHORUS 3.2 mg/dL (2.5-4.9); POTASSIUM 3.8 mmol/L (3.5-5.1); TOTAL BILIRUBIN 0.8 mg/dL (0.2-1.0); TOTAL PROTEIN 6.5 g/dL (6.4-8.2)
[2021-01-04 10:51] VITALS: BP 127/70
[2021-01-04 11:52] LABS: T-SPOT.TB Negative
--- NOTE | 2021-01-04 13:28 | NUR ---
Pt was transferred to SICU from 3W over the weekend. Hollie consulted. Discussed case with Director of Case Mgmt, who has spoken with pt's . Request made for referral to be sent to [facility] per pt's . JONY spoke with intake and faxed face sheet to verify pt's insurance. [facility] is unable to accept pt until 14 days post COVID positive test date. Pt was to discharge home today, but pt is now staying. JONY updated Director of Case Mgmt.
--- NOTE | 2021-01-04 15:57 | NUR ---
RESUMMED CARE FROM OVERNIGHT SHIFT THIS AM, PATIENT IN ROOM SLEEPING. PATIENT ALERT TO SELF ONLY PATIENT VERY LETHARGIC THIS AM. PATIENTS UNABLE TO TELL ME ABOUT SI/HI/AH/VH AT PRESENT. PATIENTS ABDOMNEN SOFT BOWEL SOUNDS PRESENT, PATIENTS LUNGS CLEAR. PATIENTS CAME TO PICK PATIENT UP WHEN SHE SAW THE PATIENT; SHE CHANGED HER MIND AND STATED SHE CAN'T TAKE HIM HOME. RACHID CALLED SARIAH CASIANO TO SEE HOW WE WERE GOING TO HANDLE THIS SITUATION. SARIAH CAME TO UNIT AND STATED HE WOULD TALK TO DR MURO AND RACHID. PATIENTS CALLED TWO TIMES TO SEE WHAT WE WERE GOING TO DO WITH THE PATIENT. I TOLD THE I WOULD CALL HER IF I HEARD ANYTHING. PATIENT HAS NOT DISPLAYED ANY BEHAVIORS, HE JUST TRIES TO GET OUT OF BED. DR JACKSON WILL BE HIS HOSPITALIST AND ROUND ON THE PATIENT DURING HIS STAY. WILL CONTINUE TO MONITOR PATIENT FOR SAFETY AND BEHAVIORS. HOSPITALIST OR THE REST OF HIS STAY. CARIAS CAME TO [facility]
[2021-01-04 19:30] VITALS: BP 118/86
--- NOTE | 2021-01-05 02:22 | NUR ---
01-04-21 CARE TRANSFERRED 0 OBSERVED PT SITTING IN BED. LATER PT AAOX1, VSS, RR EVEN AND NONLABORED ON RA. PT DENIES SI/HI. PT REPORTS PAIN IN LOWER BACK, PAIN BEING MANAGED WITH SCHEDULE MEDICATION. PT RESTLESS BUT HAS BEEN EASILY REDIRECTED. NOTICE PT TRYING TO TAKE WHITE BOARD OFF WALL, BUT AGAIN PT WAS EASILY REDIRECTED. PT WILL CONTINUE TO BE MONITOR PER [facility] PROTOCOL.
--- NOTE | 2021-01-05 09:38 | NUR ---
Spoke with Graciela at [phone] who is asking to get a DPOA on her spouse as he has been deemed unable to make his own decisions. Explained the difference between DPOA and guardianship in this type of case. then asked that [facility] in [place] ([facility] [place]) be sent a referral. Then explained AL verses SNF level of care as well as which would be covered by insurance. lives in [place] and would prefer [facility] and specifically [facility]. Notifying medical CM/SW to send referrals to both [facility] in [place] ([phone]) as well as [facility] in [place] and then correspond with . Also explained that Medical CM will follow patient until cleared from isolation and explained how transition of social work service would then take place, moving the patient to the caseload of Behavioral Health Office Administrative Assistant. is in agreement with today's decision for referrals to be sent and will have Medical CM follow for now until determined to move to SW cases on [facility].
[2021-01-05 13:25] LABS: ALBUMIN 3.2 g/dL (3.4-5.0); DIRECT BILIRUBIN 0.2 mg/dL (<0.1-0.2); TOTAL BILIRUBIN 0.9 mg/dL (0.2-1.0); TOTAL PROTEIN 7.2 g/dL (6.4-8.2)
--- NOTE | 2021-01-05 13:40 | NUR ---
HAS BEEN DOZING OFF/ONN IN ROOM-DID NOT MAKE ANY ATTEMPT TO FEED SELF WHEN TRAY PLACED IN FRONT OF HIM.-HOWEVER DID EAT OVER 50 PERCENT WHEN FED BY STAFF.REFUSED TO TAKE 0900 MEDS WHEN 0FFERD WHOLE-CLOSING MOUTH TIGHTLY AND REFUSING TO OPEN-MEDS CRUSHED AND [LACED WITH PUDDING AND DID TAKE AFTER SEVERAL TRIES. AFEBRILE-NO COUGH NOTED. LUNGS SLIGHTLY DIMINISHED IN BASES-O2 SAT 97 PERCENT
--- NOTE | 2021-01-05 15:50 | NUR ---
JONY notified by Director of Case Mgmt that pt's is requesting referrals to be sent to [facility] and [facility]. [facility] faxed referrals to the facilities. JONY spoke with pt's via phone to provide update and notified that referrals have been sent. Awaiting input from facilities at this time. JONY is following to assist as needed with discharge planning.
[2021-01-05 16:31] VITALS: BP 148/66
[2021-01-05 20:05] VITALS: BP 132/80
--- NOTE | 2021-01-06 05:00 | NUR ---
01-05-21 CARE TRANSFERRED 1899 OBSERVED PT SITTING IN RECLINER. LATER PT PRESENTS CONFUSED AND A/OX1 ONLY, VSS, RR EVEN AND NONLABORED RA. PT REPORTS PAIN IN LOWER BACK, PAIN IS BEING MANAGED WITH SCHEDULED MEDICATION. PT DENIES SI/HI AND OBSERVED NO SI/HI BEHAVIORS. PT COMMUNICATION EFFORT BUT OFTEN COMES ACROSS MUMBLING. PT HAS BEEN CALM AND COOPERATIVE, BUT RESTLESS. PT HAD NO DIFFICULTIES TAKING MEDICATION WHOLE WITH WATER AND 480ML OF FLUIDS CONSUMED. PRESENT DURING PT BREATHING TREATMENT. PT WAS ASSISTED TO BED IN LOWEST POSITION, LOCKED AND ALARM ON. PT WILL CONTINUE TO BE MONITOR PER [facility] PROTOCOL.
[2021-01-06 06:13] LABS: HEMATOCRIT 53.8 % (42.0-52.0); MCH 31.3 pg (26.0-34.0); MCHC 33.4 g/dL (28.0-37.0); MCV 93.6 fL (80.0-100.0); RBC 5.75 mil/uL (4.50-6.00); RDW 12.6 % (10.5-14.5); WBC 10.7 thou/uL (4.0-11.0)
[2021-01-06 06:31] LABS: CALCIUM 8.4 mg/dL (8.5-10.1); CREATININE 1.1 mg/dL (0.7-1.3); MAGNESIUM 2.6 mg/dL (1.8-2.4); POTASSIUM 3.9 mmol/L (3.5-5.1)
--- NOTE | 2021-01-06 08:39 | NUR ---
Nutrition: Pt transferred from [facility] to SICU over weekend. Hx TBI, probable underlying dementia. 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 Now looking into facilty. Enhanced precuations, COVID+. Confused. On B12 and folic acid supplementation. Sometimes needs feed assist. Overall fair intake average 55% of meals. UBW appears to be 170# in August, possible 3% decline in 4 months. Not significant. Will offer Ensure daily due to fair intake. Otherwise place as low risk.
[2021-01-06 09:38] VITALS: BP 125/94
[2021-01-06 10:57] VITALS: BP 125/94
[2021-01-06 12:30] VITALS: BP 123/84
--- NOTE | 2021-01-06 12:57 | NUR ---
PATIENT CARE ASSUMED AT 0700, PATIENT OBSERVED SLEEPING IN BED WITH EYES CLOSED, I TRY GETTING PATIENT UP FOR BREAKFAST AND ASSESSMENT BUT HE WILL NOT OPEN HIS EYES BUT RESPOND TO VERBAL COMMAND, BREATH SOUND CLEAR, ACTIVE BOWEL SOUND WITH SOFT AND ROUNDED ABDOMEN, VSS, RR EVEN NONLABORED ON ROOM AIR, COLOR BRISK WITH CAPILLARY REFILL, PATIENT IS INCONTINENT OF BOWEL AND BLADDER, SECURITY WAS CALLED TO ASSIST IN CHANGING HIM, HIS BROUGHT SOME CLOTHS FOR HIM,TOOK HIS MEDICATION WHOLE, PATIENT TRY GETTING UP FROM BED AND WE FINALLY PUT HIM ON THE RECLINER CHAIR. PATIENT DENIES SI/HI, FALL PRECAUTION IN PLACE, WILL CONTINUE TO MONITOR PATIENT FOR SAFETY AND BEHAVIOR.
--- NOTE | 2021-01-06 16:11 | NUR ---
Record shows patient remains A&O x1 with non-labored breathing and no SI/HI. Eating 50+% of meals with assistance. Per AM attending meeting the patient has been a patient in outpatient level of care with neurology who notes that patents memory has been poor prior to this admission. Spoke with spouse Graciela at [phone]. Complaints with nursing hanging up on her multiple times, MD's not calling her as she is asking for daily, and is now asking that she be allowed to take her home with Home Health. Apparently spouse was asked to leave the hospital and was speaking to me from the parking lot and security was speaking with her in the background. Have notified attending to call me to discuss level of care needed as now spouse is saying that with Home Health she can care for the patient in their home and help with other ADL's. Spoke with [facility] director to update. Dr. Grossman notified that both he and Dr. Kerr have spoken to the again today and agreed to discharge home tomorrow 01-07-21 at 1500 with Home Health. Patient has limited options for Home Health and referral is being faxed to [employer] [facility] via phone number [phone] and fax number of [phone]. Patient will need PT/OT and ROUTE JUMPER. I have notified the of the above and she is in agreement. I will follow up in the AM with spouse once we hear back from [employer] [facility].
[2021-01-06 19:08] VITALS: BP 148/94
--- NOTE | 2021-01-06 22:15 | NUR ---
AT ONSET OF SHIFT PT WAS RESTING IN BED. PT WAS LETHARGIC WITH CONSTRICTED AFFECT. PT WAS ONLY ORIENTED TO SELF. SPEECH WAS SLURRED AND DIFFICULT TO UNDERSTAND. AT TIMES PT WILL AMBULATE ON HIS OWN FINE AND THEN BECOME UNSTEADY ON HIS FEET. PT REFUSED RESPIRATOY THERAPY. PT WAS COMPLIANT WITH HS MEDICATION AND VITAL SIGNS. PT CANNOT ENGAGE IN MEANINGFUL CONVERSATION WITH RN. PT IS INCONTINENT ON URINE AND WAS PLACED IN BRIEF.
[2021-01-06 23:04] VITALS: BP 144/84
[2021-01-07 02:50] VITALS: BP 144/95
[2021-01-07 08:56] VITALS: BP 116/76
--- NOTE | 2021-01-07 10:52 | HC ---
[facility] [place] [address] CONSULTATION Name: RAIMUNDO CERVANTES Room #: 222-P ADM IN M.R.#: [id number] Admission: 12/29/20 Attend Phys: Kirti Gomez MD Discharge: Date of : 57 Report #: [id number] THIS REPORT FOR: cc: [facility] - Clinic physician unknown [facility] - Clinic physician unknown Ever Garcia MD ~ DATE OF SERVICE: 12/29/2020 HISTORY OF PRESENT ILLNESS: A 65-year-old male patient who is not able to provide any reliable history. I called the patient's for the number I had but she did not answer. I had seen this patient in 08/2020 and I reviewed those records. The patient apparently has progressive dementia, which may have been because of multiple concussions he had. This is during his [employer] career. He was recommended to go to [facility] because of that complexity. I cannot tell if he ever did or not. He has tested COVID positive. He was evaluated for psychiatric admission, but declined that. Apparently, this patient is falling down. According to nurses, he was agitated and they gave him some Zyprexa, that makes any further examination almost impossible. REVIEW OF SYSTEMS: Positive for multiple concussions in the past. He had an EEG in the past which did not show any active seizure activity, but it was slow. He has a history of dementia, is lot of workup was done in [place] and is not available to me. He apparently also had a neuropsychological testing done at that time. PAST MEDICAL HISTORY: Positive for dementia. FAMILY HISTORY: Unavailable. SOCIAL HISTORY: From the record, he does not smoke or drink alcohol. PHYSICAL EXAMINATION: The patient's examination indicate that he will not cooperate, when I asked him what month it is, he initially will not reply, but subsequently was says April. When I asked him [facility]. He will not open his eyes to do a cranial nerve examination. I believe he can move all 4 extremities, but he did not cooperate with the sensory examination or basically any other examination, which I can carry out. His breathing is okay and cardiac examination is alright. LABORATORY DATA: He did have a CT scan on 12/28 and that does not show any acute process. At one time, his B12 is low and his thyroid function is borderline. His hearing and vision looks adequate. His sodium is somewhat low at 131. His calcium was low at 7.9. IMPRESSION: I am not sure what neurologically we can do on him here. He was recommended to go to [facility] and I am going to recommend [facility] [address] [place] [address] CONSULTATION Name: RAIMUNDO CERVANTES Room #: 222-P [facility] IN M.R.#: [id number] Admission: 12/29/20 Attend Phys: Kirti Gomez MD Discharge: Date of : 57 Report #: [id number] that again to the patient's . I will recheck his B12. His TSH is somewhat borderline that need to be addressed by hospitalist. I talked to the , but I am not sure if neurologically what can be done here and he needs to go to a tertiary care center, best will be [facility]. Thank you very much for this referral and if you have any questions, please feel free to contact me. <ELECTRONICALLY SIGNED> By: Ever Garcia MD 01/07/21 1052 1630 Ever Garcia MD /nt
--- NOTE | 2021-01-07 10:53 | EEG ---
[facility] [place] [address] ELECTROENCEPHALOGRAM Name: RAIMUNDO CERVANTES Room #: 222-P ADM IN M.R.#: [id number] Admission: 12/29/20 Attend Phys: Kirti Gomez MD Discharge: Date of : 57 Report #: [id number] THIS REPORT FOR: //name// DATE OF SERVICE: 01/06/2021 This EEG was done because of altered mental status. The EEG was done by placing the electrode by standard 10-20 system of electrode placement. Both referential and sequential montages were used for recording. Background activity in this patient's EEG is about 8-9 Hz and 30 microvolt. That is intermixed with theta range slowing on both sides. Photic stimulation was unremarkable. Throughout the record, no active epileptiform activity was noticed. IMPRESSION: This patient's EEG is intermixed with theta range slowing on both sides. That is a nonspecific abnormality which can occur with encephalopathy, effect of psychotropic medication, drowsiness, etc. No active epileptiform activity was noticed. The patient's finding was moderate. Thank you very much for this referral. <ELECTRONICALLY SIGNED> By: Ever Garcia MD 01/07/21 1053 1453 [id number] Ever Garcia MD /nt
--- NOTE | 2021-01-07 13:41 | NUR ---
PATIENT CARE ASSUMED AT 0700, PATIENT WAS RESTING IN BED WIH EYES OPENED,PATIENT IS ALERT AND ORIENTED TO SELF ONLY, HE WAS CALM FOR ASSESSMENT AND LATER BECAME RESTLESS, HE KEEP GETTING OUT OF BED, HE TOOK HIS MORNING MEDICATION CRUSHED WITH PUDDING, ATE BREAKFAST WITH ASSISTANCE, HE IS INCONTINENT OF BLADDER, PATIENT HAS AN IV S/L ON HIS LEFT ARM, HE WENT DOWN FOR MRI, ACTIVE BOWEL SOUND OVER SOFT AND ROUNDED ABDOMEN, BREATH SOUND CLEAR AND DIMINISHED, HE COUGH OCCASIONALLY, RR EVEN NONLABORED RA. PATIENT DENIES SI/HI.
--- NOTE | 2021-01-07 13:51 | NUR ---
Spoke with Graciela this AM and notified that [facility] was unable to accept because of staffing and that a referral was being sent to [facility] which we learned they too are unable to accept at this time because of staffing. Spoke one-on-one with attending MD and he is going to be calling the this AM as the plan is that IM believes the patient should stay and he will take over care and has discussed with unit psychiatrist. Have notified ID Nurse to review for Notable prior to this information I have given the spouse a phone to reach out at [employer] of [phone] for assistance with possible Medicaid in home care. CM will continue to follow this case and follow MD directives for care transitions towards discharge as they evolve.
[2021-01-07 19:45] VITALS: BP 123/86
[2021-01-07 23:00] VITALS: BP 1401/91
[2021-01-07 23:01] VITALS: BP 140/91
--- NOTE | 2021-01-07 23:07 | NUR ---
Assumed care on 01/07/21 @ 1900, in bed and awake, alert x1. Patient noted to have a red flush to his face, Dr. Grossman notified, new order obtained for Depakote sprinkles as patient is requiring meds to be crushed in pudding. Patient has hickups but denies pain. Hospitalist Cristian DENTAL ASSOCIATE gave new order for Thorazine 25 and PRN clonadine with perameters. Cough noted occasionally, Breath sounds Clear Bilat, HRRR S1S2 noted. Took meds crushed in pudding and hickups noted to be softer and less frequent. Redness in face has diminished and is now noted to be pink and less dark. Ambulated to the toilet but was incontinent of bladder on the way. Fall precautions in place, bed alarm set, bed in low position. Will continue to monitor as per [facility] protocol.
[2021-01-08] VITALS (7 sets, daily range): BP systolic 116–145; BP diastolic 70–102
[2021-01-08 05:54] LABS: HEMATOCRIT 53.4 % (42.0-52.0); HEMOGLOBIN 17.8 gm/dL (14.0-18.0); MCH 31.4 pg (26.0-34.0); MCHC 33.2 g/dL (28.0-37.0); MCV 94.4 fL (80.0-100.0); RBC 5.66 mil/uL (4.50-6.00); RDW 12.8 % (10.5-14.5); WBC 6.9 thou/uL (4.0-11.0)
[2021-01-08 06:32] LABS: ALBUMIN 2.6 g/dL (3.4-5.0); CALCIUM 8.2 mg/dL (8.5-10.1); CREATININE 0.8 mg/dL (0.7-1.3); POTASSIUM 4.7 mmol/L (3.5-5.1); TOTAL BILIRUBIN 1.2 mg/dL (0.2-1.0); TOTAL PROTEIN 6.4 g/dL (6.4-8.2)
--- NOTE | 2021-01-08 08:22 | NUR ---
SENT A [employer]PT[employer] TEXT TO DR JACKSON THIS MORNING AT 0746 REGARDING CHANGING THE INHALER TO PRN FOR SOA/WHEZZING. BASED ON MY ASSESSMENT AND PT NOTES THERE IS NO INDICATION FOR TREATMENTS AT THIS TIME. NOTIFIED GINNY THE RN THAT WE WILL BE CHANGING THE FREQUENCY TO PRN. CHANGED ORDER TO PRN BASED ON VERBAL ORDER FROM DR JACKSON.
--- NOTE | 2021-01-08 12:26 | NUR ---
Was called to speak in person to patient's spouse via attending and security had stated that spouse had entered the building going to SICU to see patient visibly upset. Once spouse (and her sister) was found by security was brought to my office with the attending. Attending explained that he had spoken with her yesterday as had I and that the plan was to call after meeting with other specialties to assure to move the level of care was secure for her continuity of care understanding. Spouse was very tearful and anxious in her appearance; but did calm once the attending explained the plan to move to the West side of the 4th floor today, now out of isolation on this unit allow her the ability to see the patient in person, continue medical overview of care and then decided on discharge needs as they arise. Spouse still tearful did agree to this plan. Explained that the nursing team would contact her once a room was made available. Currently it looks as probable 460. SW and community service director have been made aware of patient's pending arrival. SW will send in case of a weekend discharge a referral to [facility] who has accepted despite being [id number] for PT, OT and SW at discharge. Spouse did acknowledge that [facility] had reached out to her after I called and requested and is now working to assist the spouse with possible Medicaid services in the home by applying for Medicaid. Spouse was assured that she could speak with nursing face to face now that the patient will be out of isolation and she will be able to visit. 4W SW to follow with spouse for on-going needs as they arise, and CM will continue to follow the case for support and discharge needs.
--- NOTE | 2021-01-08 14:01 | NUR ---
Report given to Isacc on 4W for patient to be transferred. Patient being transferred to room 460 by wheelchair with personal belongings.
--- NOTE | 2021-01-08 16:36 | NUR ---
PT ARRIVED ON UNIT THIS AFTERNOON. CM HAD SPOKEN WITHCARE TEAM AND WAS MADE AWARE OF PLAN. CM NOTIFIED [facility] OR PT'S ROOM CHANGE. THEY ARE AWARE AND HAVE ACCEPTED PT FOR SERVICES UPON DC. SHOULD PT BE MEDICALLY STABLE TO DC HOME OVER WEEKEND CONTACT [facility] AT FAX ORDERS TO . SHOULD THEY NEED TRANSPORTATION CONTACT [facility] AT . CM FOLLOWING REGARDING DC PLANNING.
--- NOTE | 2021-01-08 17:44 | NUR ---
PT ARRIVED TO UNIT THIS AFTERNOON AROUND 1600. ON ARRIVAL PT WAS GROGGY AND SLEEPING. RN WAS NOTIFIED OF SOME SOCIAL ISSUES PRIOR. FAMILY MEMBERS WERE EMOTIONAL BUT POLITE. PT RESTING IN BED WITH NO COMPLAINTS, VSS.
--- NOTE | 2021-01-08 22:06 | NUR ---
Assumed care on 01/08/21 @ 1900, in bed anxious and getting out of bed repeatedly, 1:1 with patient to return him to bed for personal safety. Ambulated patient to toilet with a fairly steady gait, had to give instructions, take a step, walk, sit down etc. Patient worked against each goal with confusion and resistance noted. The walk to the toilet tired him, returned to bed, at his request, but then he continued to scoot down to the foot of the bed and try and get out of bed. Continent of urine, noted to be yellow in color. HRRR, S1S2 noted. ABD has hyperactive bowel sounds. Breath sounds difficult to auscultate due to patient not breathing deeply on request and the hickups. Replaced yellow socks on patient, as he was dressed in athletic socks that did not have nubby traction. Will continue to monitor for safety and comfort. 1:1 continues at this writing.
[2021-01-09 07:30] VITALS: BP 131/92
--- NOTE | 2021-01-09 16:30 | NUR ---
Assumed pt care at 7am.Pt in bed resting with stter at bs.Assessment completed.vss. Meds given as ordered and well tolerated. Mexican Food Maker assisted pt with all meals. Fair appetite noted. Pt took shower with geologic technician and assist. Occasional hiccoughs noted. Thorazine po given with relief.Pt in chair resting and watching tv.Fall bundle in place. Will continue to monitor.
[2021-01-09 21:27] VITALS: BP 144/102
--- NOTE | 2021-01-10 04:22 | NUR ---
Pt. was restless and wanting to go home. He started to walk out of his room and non-redirectable. Security was called and was able to redirect him to chair. He still was very restless and Shania JOYNER called and notified (see orders,cpoe). Ativan given as ordered (see emar) with some relief. He still had periods of restlessness and also the hiccups. Meds given for the hiccups (see emar) with little relief. Pt. refused to wear a gown and refused HS meds. He does have a sitter.
[2021-01-10 07:00] LABS: HEMATOCRIT 47.8 % (42.0-52.0); HEMOGLOBIN 16.4 gm/dL (14.0-18.0); MCH 31.6 pg (26.0-34.0); MCHC 34.4 g/dL (28.0-37.0); MCV 91.9 fL (80.0-100.0); RBC 5.2 mil/uL (4.50-6.00); RDW 12.1 % (10.5-14.5); WBC 6.1 thou/uL (4.0-11.0)
[2021-01-10 07:16] LABS: CALCIUM 8.1 mg/dL (8.5-10.1); CREATININE 0.9 mg/dL (0.7-1.3); POTASSIUM 3.8 mmol/L (3.5-5.1)
[2021-01-10 08:21] VITALS: BP 132/47
--- NOTE | 2021-01-10 18:45 | NUR ---
Assumed pt care at 7am. Pt in bed very restless and agitated.Assessment completed.vss. Dr Kerr and sonal notified. Both drs rounded on pt and new order noted.Sitter at bs for 1:1 monitor. Pt family here to visit,updtaes given.Fall bundle in place. Will continue to monitor.
[2021-01-10 21:19] VITALS: BP 105/72
--- NOTE | 2021-01-11 02:35 | NUR ---
UPON SHIFT REPORT, PT MAINTAINS SITTER FOR FALL SAFETY/PRECAUTIONS. UPON SHIFT ASSESSMENT, PT AOX1, TO TIME OF DAY. PT REPORTS 'HOME' IN REGARDS TO PLACE ORIENTATION AND '1966' AND '1963' IN REGARDS TO SELF ORIENTATION/. PT MOOD PLEASANT WITH BRIGHT AFFECT, RESTLESS BEHAVIOR NOTED. PT INTERMITTENTLY DIFFICULT TO REDIRECT. PT RECEIVING PRN IM ZYPREXA Q8HR. PT DENIES PAIN AND SOB WHILE ON ROOM AIR. PT RECEIVING SCHEDULED PO TRAMADOL QHS. PT TOLERATING PO INTAKE OF FLUIDS AND REGULAR DIET WITHOUT ISSUE. PT WITHOUT NAUSEA OR EMESIS. PT AMBULATING WITH STANDBY ASSIST IN ROOM AND TO BATHROOM, GAIT INTERMITTENTLY UNSTEADY. WHEN RESTING IN BED FREQUENT REPOSITIONING ENCOURAGED, PT NOTED TO SHIFT INDEPENDENTLY. SENSATION INTACT, CAPILLARY REFILL LESS THAN 3SEC, PERIPHERAL PULSES PALPABLE IN ALL EXTREMITIES. PT ENCOURAGED TO NOTIFY STAFF FOR ALL NEEDS, CALL LIGHT WITHIN REACH, BED ALARM ON, BED LOCKED IN LOWEST POSITION, SITTER IN PLACE, ROOM NEAR NURSES STATION, FREQUENT MONITORING WILL CONTINUE.
[2021-01-11 05:42] LABS: HEMATOCRIT 50.1 % (42.0-52.0); HEMOGLOBIN 17.2 gm/dL (14.0-18.0); MCH 31.9 pg (26.0-34.0); MCHC 34.5 g/dL (28.0-37.0); MCV 92.6 fL (80.0-100.0); RBC 5.41 mil/uL (4.50-6.00); RDW 12.5 % (10.5-14.5); WBC 9.7 thou/uL (4.0-11.0)
[2021-01-11 06:09] LABS: CALCIUM 8.4 mg/dL (8.5-10.1); CREATININE 1.2 mg/dL (0.7-1.3); MAGNESIUM 2.1 mg/dL (1.8-2.4); POTASSIUM 4.1 mmol/L (3.5-5.1)
[2021-01-11 07:33] VITALS: BP 112/75
[2021-01-11 08:34] VITALS: BP 112/73
[2021-01-11 12:00] VITALS: BP 115/82
--- NOTE | 2021-01-11 16:14 | NUR ---
CM MET WITH PT AND SPOUSE AT BEDSIDE THEY INDICATED THEY STILL DESIRE TO DC HOME [facility] ONCE MEDICALLY STABLE. SPOUSE ASKED ABOUT [place] MEDICAID APPLICATION AND BEING PT'S PAID CAREGIVER. CM EXPLAINED THAT TO HE A PAID CAREGIVER THROUGH [facility] [place] MEDICAID WAIVER SERVICES PT HAD TO HAVE ACTIVE [place] MEDICAID FIRST. CM INDICATED THAT CM TO FOLLOW UP [facility] AND SEE IF/WHERE THEY ARE IN THAT PROCESS AND THAT CM CAN SEND ELECTRONIC REFERRAL FOR [facility] PRIOR TO DC. SPOUSE ASKED ABOUT SUPPLIES AND DME UPON DC. CM INDICATED THAT THERAPY WOULD MAKE RECEOMMENDATIONS FOR NEEDED DME PRIOR TO DC AND THAT CM CAN ORDER WHAT'S NEEDED BUT THAT PT WOULDN'T LIKELY QUALIFY FOR A HOSPITAL BED FOR HOME USE AND CM INDICATED THAT CM HADN'T SEEN PT WORKING WITH PT WITH A [facility] PREVIOUSY EVEN. SPOUSE WAS SUPRISED THAT A WALKER AT DC WASN'T A GIVEN. SPOUSE INDICATED THEY WOULD LIKE TO DC HOME TOMORROW. CM INDICATED CM WOULD CONVEY PREFERANCE TO CARE TEAM. CM CALLED AND NOTIFIED [facility] DC HOME TOMORROW. CM FOLLOWING.
--- NOTE | 2021-01-11 18:21 | NUR ---
ASSUMED CARE OF PT AROUN 0700. PT HAD NO COMPLAINTS AND REMAINED CALM WITH IN ROOM THROUGHOUT THE DAY. AMBULATES WELL. DID NOT REQUIRE AND ANXIETY MEDICATION. WAITING ON PLAN FOR DISCHARGE. TAKES PILLS WELL WITH APPLESAUCE.
--- NOTE | 2021-01-11 19:30 | NUR ---
Pt. became agitated and restless and was wanting to go home. He was undirectable and went out the double doors on the hallway. Security was called and they were able to get him back to his room. Call placed to Dr. Thorpe.
[2021-01-11 20:19] VITALS: BP 122/91
[2021-01-11 22:06] LABS: SYPHILIS AB Non Reactive (Non Reactive)
[2021-01-12 08:42] VITALS: BP 126/88
[2021-01-12 10:42] LABS: HEMATOCRIT 47.4 % (42.0-52.0); HEMOGLOBIN 15.6 gm/dL (14.0-18.0); MCH 30.7 pg (26.0-34.0); RBC 5.1 mil/uL (4.50-6.00); RDW 12.6 % (10.5-14.5)
[2021-01-12 10:55] LABS: CALCIUM 8.3 mg/dL (8.5-10.1); CREATININE 0.9 mg/dL (0.7-1.3); MAGNESIUM 2.1 mg/dL (1.8-2.4); POTASSIUM 3.8 mmol/L (3.5-5.1)
--- NOTE | 2021-01-12 12:32 | NUR ---
ASSUMED CARE OF PT AT 0700. PT HAD A LONG RESTLESS NIGHT LAST NIGHT AND WAS ONLY CONSOLED BY CALLING . SLEPT IN THE MORNING UNTIL ARRIVED. , RN, AND MD TEAM CONVERSED ABOUT SAFETY OF PT AT DISCHARGE AND WERE ABLE TO CONVINCE AND PT THAT IT WOULD BE BEST TO GO TO [facility] FOR SOME MANAGEMENT. PT AND RESTING IN ROOM UNTIL TRANSFER CAN BE INITIATED WITH INSURANCE CLEARANCE. WILL CONTINUE TO MONITOR.
--- NOTE | 2021-01-12 14:28 | NUR ---
DR. MURO SPOKE WITH PT'S SPOUSE THIS AM AND INDICATED THAT HE THINKS IT WOULD BE BENEFICIAL FOR PT TO GO TO [facility] PRIOR TO DC. PT'S SPOUSE WAS TO THINK ABOUT HOME WITH [facility] VS. 5S [facility] AND MAKE A DECISION BY 10:30 TODAY. CM FOLLOWED UP WITH HER AND SHE STATED THAT SHE WANTED PT TO GO TO 5S. CM NOTIFIED HOSPITALIST AND THEY ARE CHECKING INSURANCE. CM FOLLOWING REGARDING DC PLANNING.
[2021-01-12] MEDS ORDERED: VITAMIN B-12500 MCG PO (15:19)
[2021-01-12] MEDS ORDERED: MELATONIN5 M1 PO (15:19)
[2021-01-12] MEDS ORDERED: FOLIC ACID1 MG PO (15:19)
== END 2021-01-12 15:41 | DRG 177 ==
LOC: ER 11:16 → EROBS 12:00 → SICU 12:00 → 3W 12:00 → 4W 12:00 → 3W 12:41 → SICU 01-02 12:03 → 4W 01-08 15:06
PROVIDERS: Internal Medicine; Nurse Practitioner; Psychiatry & Neurology Neuromuscular Medicine; Specialist; ADMIT Hospitalist; ATTEND Hospitalist
PROC: XW033E5 Introduction of Remdesivir Anti-infective into Peripheral Vein, Percutaneous Approach, New Technology Group 5 (ICD-10-PCS; principal; 2020-12-30)
DX: U07.1 COVID-19 (principal); G93.41 Metabolic encephalopathy; J12.82 Pneumonia due to coronavirus disease 2019; E43 Unspecified severe protein-calorie malnutrition; F03.91 Unspecified dementia, unspecified severity, with behavioral disturbance; E87.1 Hypo-osmolality and hyponatremia; M62.82 Rhabdomyolysis; N17.9 Acute kidney failure, unspecified; F23 Brief psychotic disorder; F05 Delirium due to known physiological condition; F02.81 Dementia in other diseases classified elsewhere, unspecified severity, with behavioral disturbance; R33.9 Retention of urine, unspecified; E87.6 Hypokalemia; F41.9 Anxiety disorder, unspecified; E53.8 Deficiency of other specified B group vitamins; Z86.73 Personal history of transient ischemic attack (TIA), and cerebral infarction without residual deficits; Z87.81 Personal history of (healed) traumatic fracture; Z68.24 Body mass index [BMI] 24.0-24.9, adult; Z79.82 Long term (current) use of aspirin; Z79.899 Other long term (current) drug therapy
CPT/HCPCS: 10045; 10047; 10879; 15002

== ENCOUNTER 2021-01-12 15:25 | Inpatient (IN) | payer OTHER ==
[~2021-01-12] VITALS: Ht 175.3 cm; Wt 66.3 kg
[~2021-01-12 15:25] MED LIST changes: +FOLIC ACID1 MG PO; +MELATONIN5 M1 PO; +VITAMIN B-12500 MCG PO
[2021-01-12 17:21] VITALS: BP 115/81
--- NOTE | 2021-01-12 17:28 | NUR ---
Arrived at 1525 via w/c with belongings from [facility]. Calm and cooperative with assessments. oriented to self. pt thinks he is in [place]. Lungs clear, active bowel sound. Took meds crushed with apple sauce. Denies si/hi. Denies pain at this time. Ambulates, x1 assist with care. No skin problems noted, no wounds noted upon assessments. Admission orders completed, Care plan activated. Pt ate dinner. At time pt is in the day room watching TV. will continue to monitor.
[2021-01-12 20:00] VITALS: BP 115/81
--- NOTE | 2021-01-13 03:36 | NUR ---
PATIENT IS ALERT AND ORIENTED. AMBULATES AND ABLE TO VERBALIZE HIS CONCERN. HE IS FORGETFUL AND OVER ESTIMATES HIS ABILITY. HE IS CONTINENT OF BOWEL AND BLADDER. BED IS LOW, LOCKED AND ALARMED. BS ACTIVE X 4 QUAD. LUNGS ARE CLEAR. HE TOOK HIS MEDS WHOLE. DENIES PAINS,SI/ AVH/ HI. HE HAS YELLOW SOCKS AND TOP ON.
[2021-01-13 09:00] VITALS: BP 104/65
--- NOTE | 2021-01-13 11:58 | NUR ---
01-13-2021--11:00 AM--Present, Doctor Natacha, Patient (Tyrese) and this worker. Doctor administered the SLUMS to Tyrese. He scored 15/30. Attempted to call and she was not home. Doctor left a message for her. I will attempt to call myself for additional information as/if needed.
[2021-01-13 13:36] LABS: CHOLESTEROL 142 mg/dL (<200); HDL CHOLESTEROL 34 mg/dL (>40); LDL CHOLESTEROL 88 mg/dL (<100); TC:HDL 4.2 Ratio (Not establshd); TRIGLYCERIDE 101 mg/dL (<150); VLDL 20 mg/dL (<40)
--- NOTE | 2021-01-13 15:01 | NUR ---
VISIBLE ON UNIT-OUT OF ROOM AND IN DAYROOM WITH PEERS THIS AM-ATTENDED AM GROUPS IN DINING ROOM. THIS AFTERNOON REFUSES TO COME OUT OF GROUP TO ATTEND SW AND RT GROUPS STATING HE IS WAITING FOR A CALL FROM RE DISCHARGE-THAT LADY SAID I COULD GO HOME TODAY" GAIT IS STEADY WITHOUT ASSISSTIVE DEVICESES
--- NOTE | 2021-01-13 15:05 | NUR ---
01-13-2021--14:45--Call to Patient's , Graciela. ([phone]) Inquired how she was doing since her was in the hospital. I told her I saw them both on the med floor down stairs and neither were doing very well. I told her I was pleasantly surprised with how alert the patient seemed today compared o last week. also sounded very different on the phone. (Not as hysterical and overbearing.) reports the whole household came down with MAHAD at the same time, but her got it the worst. She reports prior to COVID he had a job and some memory problems but not like now. She reports patient's parents had dementia. She reports they both have children in [place] and grandchildren and they are trying to talk them into coming back to [place] for additional family support. She states they are thinking about it. Advised her of family meeting tomorrow at 13:00. The Doctor called her on another line and she had to talk to him. I will attempt to call her at a later time.
[2021-01-13 19:33] VITALS: BP 138/87
[2021-01-14 02:06] LABS: GLYCOHEMOGLOBIN (HGB A1C) 5.8 % (4.8-5.6)
--- NOTE | 2021-01-14 04:18 | NUR ---
PATIENT IS ALERT AND ORIENTED TO PERSON, PLACE AND TIME. PATIENT IS ABLE TO ABULATE WITH STEADY GAIT, LUNGS CLEAR, HEART REGULAR AND STEADY AND BOWEL SOUNDS IN ALL FOUR QUARDANTS. PATIENT DENIES DEPRESSION, ANXIETY, SI AND HI. PATIENT IS IN [facility] AND MAKES HIS NEEDS KNOWN.
[2021-01-14 09:11] VITALS: BP 136/80
--- NOTE | 2021-01-14 11:49 | NUR ---
PATIENT CARE ASSUMED AT 0700, PATIENT STILL IN ROOM LAYING ON HIS BED WITH EYES OPENED, HE IS ALERT AND ORIENTED X4, CALM AND PLEASANT WITH CARE, ASSESSMENT COMPLETED VSS, ACTIVE BOWEL SOUND WITH SOFT AND ROUNDED ABDOMEN, BREATH SOUND CLEAR, SKIN INTACT, PATIENT TOOK HIS MEDICATION WHOLE, AMBULATE WITH A STEADY GAIT, NO PAIN REPORTED, NO BEHAVIOR CHANGE, HE DENIES SI/HI.
--- NOTE | 2021-01-14 13:38 | NUR ---
01-14-2021--13:00--Family meeting with Patient and his , Graciela (on the phone), Dr. Manzano and this worker. states family is rallying around and is willing to pay for medical equipment and anything they may need. Doctor told her Patient slept for 7 hours last night and she stated in their 14 years of mariage she didn't think he had slept that much. Doctor states he needs a PCP meeting within the next couple of weeks and Graciela accepts responsibility for making this appointment. Dr. states serrano needs a psychiatrist appointment next week and states [facility] is close to their home in [place], [place]. Patient and I called [facility] in [place] and call center receptionist stated he had to do an intake first at the office and they don't make appointments for that. She states it is a walk in process--first come first served. She stated if I gave the number she would tell her what she needs to bring to the appointment. Call to Graciela--Provided number for [facility] in [place] ([phone]). I explained it was walk in and if she called they would tell her what she needed to bring. They are open M-F from 8-4. Graciela states she will call the lady and find out what she needs for the appointment.
--- NOTE | 2021-01-14 13:49 | NUR ---
01-14-2021--13:30--Asked patient if he was coming to the social work group. He states he graduated from groups today. He was talking to someone and didn't attend.
[2021-01-14 19:40] VITALS: BP 113/68
[2021-01-14 20:20] VITALS: BP 113/68
--- NOTE | 2021-01-15 01:39 | NUR ---
PATIENT WAS UP IN DINING ROOM THIS EVENING. HE SPOKE TO HIS BY PHONE FOR AWHILE TONIGHT. HE DENIES PAIN, SI/HI/AVH. HE HAS BEEN CALM AND COOPERATIVE. HE ALSO RECEIVED A PHONE CALL FROM A FRIEND HE HAS KNOWN [employer]INCE [employer] AND WAS TELLING THIS NURSE HOW GREAT IT WAS TO TALK WITH HIM. HE HAS BEEN SMILING AND APPROPRIATE. HE HAS BEEN A/0X 3 TONIGHT. HE WALKS WITH A STEADY GAIT AND TOOK HIS MEDS WHOLE WITH WATER. VSS. ROUTINE ROUNDS TO ASSESS STATUS AND SAFETY OF PATIENT. CONTINUING TO MONITOR.
[2021-01-15 08:28] VITALS: BP 119/75
[2021-01-15] MEDS ORDERED: CHLORPROMAZINE25 M1 PO (08:29)
[2021-01-15] MEDS ORDERED: NAMENDA 5 MG TAB5 M1 PO (08:29)
[2021-01-15] MEDS ORDERED: COLACE 100 MG100 MG PO (08:30)
--- NOTE | 2021-01-15 09:10 | NUR ---
01-15-2021--9:10 AM--Call to Graciela and she reports it will be a couple of weeks before his PCP has an opening. She accepts responsibility for calling PCP and makng appointment.
--- NOTE | 2021-01-15 09:27 | NUR ---
PATIENT CARE ASSUMED AT 0700, PATIENT IS ALERT AND ORIENTED X3, CALM AND COOPERATIVE WITH CARE, HAS BREAKFAST AND TOOK HIS MEDICATION WHOLE, ACTIVE BOWEL SOUND WITH SOFT AND ROUNDED ABDOMEN, BREATH SOUND CLEAR,SKIN INTACT NO EDEMA NOTED, PATIENT DENIES SI/HI, PATIENT DISCHARGED TO HIS HOME AND PICKED HIM UP
--- NOTE | 2021-01-15 20:03 | H ---
[facility] [place] [address] HISTORY AND PHYSICAL Name: RAIMUNDO CERVANTES Room #: 528A-A DIS IN M.R.#: [id number] Admission: 01/12/21 Attend Phys: Rodrigo Grossman DO Discharge: 01/15/21 Date of : 57 Report #: [id number] THIS REPORT FOR: cc: [facility] - Clinic physician unknown [facility] - Clinic physician unknown Rodrigo Grossman DO ~ DATE OF SERVICE: 01/12/2021 ATTENDING PSYCHIATRIST: Rodrigo Grossman DO DETAIL ASSEMBLER: Pedro Luis Peoples MD REASON FOR ADMISSION: Sundowning and behavioral disturbance, elopement attempts, day night reversal circadian rhythm disturbance in the setting of a patient with known dementia, 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 SOURCES OF INFORMATION: Multiple interactions with the patient in the C-L capacity, multiple discussions with the patient's , discussions with Dr. Kerr, discussions with case management staff. CHIEF COMPLAINT: Unspecified. HISTORY OF PRESENT ILLNESS: This is a 65-year-old, likely -samoan male known to me for about the last week from seeing him in a C-L psychiatry capacity. The patient over the last really 10 days has had a complicated course where he started out as a medical admission following a fall I believe, and he was admitted to the [address] [place] [address] where he had some problematic behavior. He turned out to be COVID positive and he was put down any special isolation unit that had been created. The patient had delirium due to COVID including steroids and such he was given. The patient's had difficulty with this situation as she was not allowed to visit and had difficulty interacting with the hospital staff, later on the patient was moved to the [address] [place] [address] where the was permitted to visit him. The patient was consulted on by Dr. Garcia, the neurology service. He was felt to be too sedated. He had been started on Depakote originally by my colleague, Dr. Thorpe. This was discontinued at Dr. Garcia's request. The patient became more spontaneous, but did have sundowning, significant discussions were held with the including whether she was going to take him home. Multiple attempts at residential placement had failed, my hunch is the patient's dementia status was prejorative and facilities just would not chance him in that regard. The patient interestingly had been hospitalized at [facility] briefly in August of this year for a stroke versus seizure and that is when Dr. Garcia first became acquainted with the case. Per records, the patient had been diagnosed with progressive dementia within the last year in August with stroke-like symptoms. He had unremarkable [address] [address] HISTORY AND PHYSICAL Name: RAIMUNDO CERVANTES Room #: 528A-A [facility] IN M.R.#: [id number] Admission: 01/12/21 Attend Phys: Rodrigo Grossman, DO Discharge: 01/15/21 Date of : 57 Report #: [id number] workup for CVA, seizure, brought the patient last night for psychiatric evaluation. The patient tested for COVID, refused admission. The patient was discharged home with and they came back to the ER within an hour secondary to fall at home and the patient "acting strange." Of note, 08/2020, the patient had an electroencephalogram which showed an EEG intermixed with theta range slowing on both sides nonspecific finding which confer with delirium, psychotropic medications, dementia. PAST MEDICAL HISTORY: Includes hypertension, facial droop, no known allergies. 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 He has a history of 22 concussions. The patient worked significant job until about 2 years ago when he began working more informally. The patient has had short-term memory loss in the last 1-2 years according to the as well as the additional history I got. His family history, I am curious about, but I have limited knowledge of at this point, positive for dementia. SOCIAL HISTORY: Does not drink or smoke, alcohol. Apparently in August, Dr. Garcia recommended followup at [facility] for higher level workup for causes of dementia, I am not clear that this was actually done. LABORATORY DATA: Laboratory workup this admission is as follows. Hematology: White count 5.0, H and H 15.6 and 47.4, platelet count 248. Coagulation this admission, PT 11.3, INR 1.04. ____. D-dimer 0.49. Chemistries: Sodium 141, potassium 3.8, chloride 108, bicarbonate 27, anion gap 6, BUN 16, creatinine 0.9, estimated GFR 85, glucose 99. A1c 5.6, calcium 8.3, phosphorus 3.2, magnesium 2.1. Ferritin 643, total bilirubin 1.2, direct bilirubin 0.2. GGT of 40, AST 37, ALT 41, alkaline phosphatase 59. Ammonia 30, LD total 290. Troponin high sensitivity 7. CRP 75. NT-proBNP 90, total protein 6.4, albumin 2.6, which is borderline for severe malnutrition. Triglycerides 67, total cholesterol 115, LDL 70, HDL 32, which is low. Vitamin D normal at 64.8, folate 10.4. Procalcitonin 0.06. TSH 2.326, free T4 1.1. Urinalysis showed trace ketones. Toxicology was negative. Depakote level previously was 58, but this was discontinued. He was COVID positive on 12/29. Syphilis negative on 01/08. HIV 1 and 2 nonreactive on 12/30, TB test was negative. ADDITIONAL TESTING MICROBIOLOGY: He had a negative legionella antigen, positive for Strep pneumoniae. Blood cultures done on 12/30 showed no growth. He has had several imaging studies including a chest x-ray 12/[address] Head CT 12/28 which showed no acute intracranial process. Head MRI 01/07, which showed no acute intracranial process. Again, Dr. Garcia noted in his reviews diffusion tensor imaging, it is not available at [facility], which is a test of choice for identifying chronic traumatic encephalopathy. PHYSICAL EXAMINATION: [facility] [address] [place] [address] HISTORY AND PHYSICAL Name: RAIMUNDO CERVANTES Room #: [facility]-A [facility] IN Margarita.Briana.#: [id number] Admission: 01/12/21 Attend Phys: Rodrigo Grossman, Discharge: 01/15/21 Date of : 57 Report #: [id number] VITAL SIGNS: Today, temperature 36.3, pulse 72, respirations 17, BP 115/81, O2 sat 100%. MUSCULOSKELETAL: Seated in a Rosa chair. Fair grooming. Today, when I first saw him this morning, he was not talkative, later he was talking when his was seated at bedside. MENTAL STATUS EXAMINATION: This is a well-developed, somewhat ill-appearing male appearing actually younger than stated age. Attention limited. Concentration limited. Speech verbally spontaneous. Thought process linear, limited. Thought content focused on simple themes when spoke to him. Denied SI, HI. Denied auditory or visual type hallucinations. Oriented to person only. Insight and judgment impaired. Fund of knowledge below average. Mood and affect is constricted, congruent. FORMULATION: A 65-year-old male admitted to the [facility] in [facility]. He does not have a DPOA, so he has been admitted with mattie patel at this time. Regarding his medications, we will continue with the hospitalist service, had him on nonsteroidals, folic acid 1 mg oral daily for supplementation, vitamin B12 1000 mcg oral daily, memantine 10 mg oral b.i.d. for dementia. He is on p.r.n. chlorpromazine changed to 25 mg oral at 0900, 1500, 2100 also back up 25 mg IM chlorpromazine injection. Continue aspirin 81 mg oral daily for heart protection. Otherwise, continue house PRNs. We will see how the patient does on the chlorpromazine regimen. We will have to talk with his a long way, the is interested in pursuing guardianship. 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 Other comorbidities include hypertension, history of possible cerebrovascular accident. Of note, last August, he had an echocardiogram, which was normal. STRENGTHS: He is insured, has supportive family. WEAKNESSES: Early dementia, challenging social situation. Time spent on this case is approximately 80 minutes today. <ELECTRONICALLY SIGNED> By: Rodrigo Grossman DO 01/15/212002 [id number] Rodrigo Grossman DO /nt
--- NOTE | 2021-01-16 20:25 | D ---
[facility] [place] [address] DISCHARGE SUMMARY Name: RAIMUNDO CERVANTES Room #: 528A-A [facility] IN M.R.#: [id number] Admission: 01/12/21 Attend Phys: Rodrigo Grossman DO Discharge: 01/15/21 Date of : 57 Report #: [id number] THIS REPORT FOR: cc: [facility] - Clinic physician unknown [facility] - Clinic physician unknown Rodrigo Grossman DO ~ DATE OF SERVICE: 01/15/2021 INPATIENT PSYCHIATRIC DISCHARGE SUMMARY ATTENDING PSYCHIATRIST: Rodrigo Grossman DO TEST PULLER: Pedro Luis Peoples MD DISCHARGE DIAGNOSES: Major neurocognitive disorder, 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 MEDICAL COMORBIDITIES: Including to Dr. Peoples include COVID-19 positive recently, now off quarantine; hiccups; acute renal failure with mild rhabdomyolysis, resolved; B12 and folic acid deficiency, on replacement. DISPOSITION: The patient is discharging to his private residence with his in [place], [place]. The patient will require 24-hour assistance and supervision. Outpatient mental health care will be at [facility] in [place]. The patient has a primary care physician, and the has arranged an appointment with, to be seen within 2 weeks. DISCHARGE MEDICATIONS: Regimen as follows: Chlorpromazine 25 mg in the morning and 25 mg at 3:00 p.m., 50 mg at bedtime; docusate 100 mg b.i.d. for bowel motility, hold if diarrhea; folic acid 1 mg oral daily for supplementation; cyanocobalamin 1000 mcg oral daily for replacement; memantine 10 mg oral b.i.d. for cognitive enhancement; Aspirin 81 mg oral daily for heart protection. Otherwise, house PRNs. LABORATORY DATA: Significant laboratories this admission: I will not go over the ones from his medical admission as they have been covered elsewhere, with hemoglobin A1c slightly high at 5.8, triglycerides 101, cholesterol 142, LDL 88, HDL 34. REASON FOR ADMISSION: A 65-year-old male of [place] ancestry, admitted 01/12/2021, after overt behavioral problems on medical unit including one at computer, all fits stand, jumping on the counter, was not redirecting well. The patient had a fall and altered mental status and then tested COVID positive shortly thereafter. During the medical stay, the patient's felt ill equipped to care for him in his state, so we went ahead with a psychiatric admission. [address] [address] DISCHARGE SUMMARY Name: RAIMUNDO CERVANTES Room #: 528A-[facility] IN ..#: [id number] Admission: 01/12/21 Attend Phys: Rodrigo Grossman DO Discharge: 01/15/21 Date of : 57 Report #: [id number] HOSPITAL COURSE: The patient adapted well to coming up to the fifth floor to the Geriatric Psychiatry Unit. No assaults. No restraints. I got him going on scheduled chlorpromazine and it worked well. The patient historically has had prominent insomnia, initially only slept about 2-1/2 hours a night. We got this up to 6-7 hours duration for last 2 nights before discharge. is considering them relocating to [place], where the patient's childrens are from a prior relationship. understands the need for a 24-hour assistance and supervision. The patient has a SLUMS score [facility] mental status exam of 15/30, have only memory errors. CONDITION AT DISCHARGE: Stable. PHYSICAL EXAMINATION: VITAL SIGNS: Temperature 36.4, pulse 68, respirations 16, BP 119/75, O2 sat 96%. BMI 21.6, weight 66.31 kilos. MUSCULOSKELETAL: There is normal gait and station. MENTAL STATUS EXAMINATION: Well-developed, mixed ethnicity male. Attention fair. Concentration limited. Speech normal in rate, amount and tone. Thought process, linear and goal directed. Thought content focused on discharge, seeing his . Denied suicidal or homicidal ideation, auditory, visual, or tactile hallucinations. Denied hopelessness, helplessness. Mood and affect is good, congruent, euthymic, broad range. Memory known to be impaired. Insight limited. Judgment fair to limited. Fund of knowledge at least average range. Prognosis for this patient is guarded given the likelihood of chronic traumatic encephalopathy from greater than 20 lifetime concussions and neurodegenerative progress as described by his since the beginning of the year. <ELECTRONICALLY SIGNED> By: Rodrigo Grossman DO 01/16/212024 [id number] Rodrigo Grossman DO /nt
== END 2021-01-15 10:00 | disposition home or self-care (01) | DRG 884 ==
LOC: SBH
PROVIDERS: ADMIT Psychiatry & Neurology Psychiatry; ATTEND Psychiatry & Neurology Psychiatry
DX: F01.51 Vascular dementia, unspecified severity, with behavioral disturbance (principal); U07.1 COVID-19; G93.49 Other encephalopathy; N17.9 Acute kidney failure, unspecified; M62.82 Rhabdomyolysis; F05 Delirium due to known physiological condition; R06.6 Hiccough; E53.8 Deficiency of other specified B group vitamins; I10 Essential (primary) hypertension; Z86.73 Personal history of transient ischemic attack (TIA), and cerebral infarction without residual deficits; Z86.16 Personal history of COVID-19
CPT/HCPCS: 10880